=== PATIENT | female | born 1970 | race Caucasian/White ===

== ENCOUNTER 2016-09-29 18:28 | Emergency (ER) | payer MEDICAID ==
[~2016-09-29] VITALS: Ht 160 cm; Wt 92.8 kg
[~2016-09-29 18:28] MED LIST: ALBU1.25 NEB; ALBU8.5H3 PO; AMOX-291 PO; AZIT250T PO; CHLO1CAP PO; ESOM20CA PO; FOLI-17 PO; FURO-93 PO; HYDR-3240; HYDR10TA4 PO; LACT10SO28 PO; LACT10SO5 PO; LACT20SO2 PO; LORA-446 PO; LORA0.5T PO; MAGN400T26 PO; MULT-6 PO; MULT-750 PO; ONDA4TAB10 PO; ONDA4TAB7 PO; OXYC5TAB3 PO; PANT20TA2 PO; PANT40TA3 PO; POTA10TA5 PO; PRED10TA PO; RIFA550T PO; SERT25TA PO; SPIR50TA PO; THIA100T10 PO; THIA100T6 PO; TRAM-28 PO
[2016-09-29] MEDS ORDERED: ONDA4TAB10 PO (18:49)
[2016-09-29 19:44] LABS: BLOOD UREA NITROGEN 11 mg/dL (7-18)
[2016-09-29 19:45] LABS: ASPARTATE AMINO TRANSFERASE 52 U/L (15-37)
[2016-09-29 20:28] LABS: HEMOGLOBIN 13.8 g/dL (11.7-16.4)
[2016-09-29 21:49] VITALS: BP 109/69
== END 2016-09-29 21:51 | disposition home or self-care (01) ==
LOC: ED 21:15
DX: R10.11 Right upper quadrant pain (principal); G89.29 Other chronic pain; K70.30 Alcoholic cirrhosis of liver without ascites; F10.220 Alcohol dependence with intoxication, uncomplicated; J44.9 Chronic obstructive pulmonary disease, unspecified; I10 Essential (primary) hypertension
CPT/HCPCS: 36415; 80053; 80307; 83690; 85025; 85610; 85730; 99284

== ENCOUNTER 2016-10-06 18:04 | Emergency (ER) | payer MEDICAID ==
[2016-10-06] MEDS ORDERED: SODIUM CHLORIDE 0.9% 1,000 ML IV ONE (18:12)
[2016-10-06] MEDS ORDERED: SODIUM CHLORIDE 0.9% 1,000ML IVBOLUS ONE (18:30)
[2016-10-06] MEDS ORDERED: FAMOTIDINE 20 MG/2 ML IVP ONE (18:30)
[2016-10-06] MEDS ORDERED: PLEASE ENTER HEIGHT AND WEIGHT MC SCH (18:30)
[2016-10-06] MEDS ORDERED: SODIUM CHLORIDE FLUSH 10ML SYR IVF ONE (18:30)
[2016-10-06] MEDS ORDERED: ONDANSETRON 2MG/ML, 2ML IVPush ONE (18:30)
[2016-10-06 18:35] LABS: HEMOGLOBIN 12.1 g/dL (11.7-16.4)
[2016-10-06 18:39] LABS: ASPARTATE AMINO TRANSFERASE 52 U/L (15-37); BLOOD UREA NITROGEN 10 mg/dL (7-18)
[2016-10-06 19:16] LABS: DIFF TOTAL CELLS COUNTED 100 CELL DIFF
[2016-10-06 19:20] LABS: ANISOCYTOSIS 1+; VERIFY COUNTS? YES
[2016-10-06] MEDS ORDERED: ONDANSETRON 2MG/ML, 2ML ONE (19:21)
[2016-10-06] MEDS ORDERED: FAMOTIDINE 20 MG/2 ML ONE (19:21)
[2016-10-06] MEDS ORDERED: ONDANSETRON ODT 4 MG ONE (19:55)
[2016-10-06] MEDS ORDERED: FAMOTIDINE 20 MG TABLET ONE (19:55)
[2016-10-06] MEDS ORDERED: FAMOTIDINE 20 MG TABLET PO ONE (20:00)
[2016-10-06] MEDS ORDERED: ONDANSETRON ODT 4 MG PO ONE (20:00)
[2016-10-06 21:34] VITALS: BP 101/67
== END 2016-10-06 21:35 | disposition home or self-care (01) ==
LOC: ED 21:31
DX: K70.10 Alcoholic hepatitis without ascites (principal); F10.20 Alcohol dependence, uncomplicated; R74.9 Abnormal serum enzyme level, unspecified; R10.13 Epigastric pain; I10 Essential (primary) hypertension; J44.9 Chronic obstructive pulmonary disease, unspecified; Z90.49 Acquired absence of other specified parts of digestive tract
CPT/HCPCS: 36415; 80053; 81003; 83690; 85025; 99284; Q0162

== ENCOUNTER 2016-12-15 16:11 | Emergency (ER) | payer MEDICAID ==
[~2016-12-15] VITALS: Ht 157.5 cm; Wt 86.4 kg
[~2016-12-15 16:11] MED LIST changes: +LACT20SO13 PO; -LACT20SO2 PO
[2016-12-15] MEDS ORDERED: SODIUM CHLORIDE FLUSH 10ML SYR IVF ONE (16:30)
[2016-12-15] MEDS ORDERED: SODIUM CHLORIDE 0.9% 1,000ML IVBOLUS ONE (16:30)
[2016-12-15] MEDS ORDERED: FAMOTIDINE 20 MG/2 ML IVP ONE (16:30)
[2016-12-15] MEDS ORDERED: ONDANSETRON 2MG/ML, 2ML IVPush ONE (16:30)
[2016-12-15] MEDS ORDERED: MAALOX/HYOSCYAMINE/LIDOCAINE 45 ML BOTTLE PO ONE (16:30)
[2016-12-15] MEDS ORDERED: MORPHINE SULFATE 4 MG/ML, 1ML ONE ×2 (17:07→19:18)
[2016-12-15] MEDS ORDERED: FAMOTIDINE 20 MG/2 ML ONE (17:07)
[2016-12-15] MEDS ORDERED: MAALOX/HYOSCYAMINE/LIDOCAINE 45 ML BOTTLE ONE (17:07)
[2016-12-15] MEDS ORDERED: ONDANSETRON 2MG/ML, 2ML ONE (17:07)
[2016-12-15] MEDS: MORPHINE SULFATE 4 MG/ML, 1ML IVPush PRN ×2 (17:11→19:22)
[2016-12-15 17:16] LABS: ASPARTATE AMINO TRANSFERASE 55 U/L (15-37); BLOOD UREA NITROGEN 7 mg/dL (7-18)
[2016-12-15 17:28] LABS: DIFF TOTAL CELLS COUNTED 100 CELL DIFF
[2016-12-15 17:31] LABS: LARGE PLATELETS 1+; VERIFY COUNTS? YES
[2016-12-15 19:55] VITALS: BP 124/80
== END 2016-12-15 19:59 | disposition home or self-care (01) ==
LOC: ED 18:24
DX: K29.20 Alcoholic gastritis without bleeding (principal); F10.10 Alcohol abuse, uncomplicated; I10 Essential (primary) hypertension; J44.9 Chronic obstructive pulmonary disease, unspecified
CPT/HCPCS: 36415; 71010; 80053; 80307; 81003; 83690; 84703; 85025; 96361; 96374; 96375; 96376; 99285; J2405; J7030; S0028

== ENCOUNTER 2016-12-20 03:38 | Emergency (ER) | payer MEDICAID ==
[~2016-12-20] VITALS: Ht 157.5 cm; Wt 90.0 kg
[2016-12-20] MEDS ORDERED: methylPREDNISolone SOD SUCC 125 MG/2 ML IVP ONE (04:00)
[2016-12-20] MEDS ORDERED: ALBUTEROL SULFATE 2.5 MG/3 ML NPPB ONE (04:00)
[2016-12-20] MEDS ORDERED: SODIUM CHLORIDE 0.9% 1,000ML IVBOLUS ONE (04:00)
[2016-12-20 04:46] LABS: ASPARTATE AMINO TRANSFERASE 55 U/L (15-37); BLOOD UREA NITROGEN 8 mg/dL (7-18)
[2016-12-20 04:51] LABS: IS PT STATUS REG ER OR PRE ER? YES
[2016-12-20] MEDS ORDERED: methylPREDNISolone SOD SUCC 125 MG/2 ML ONE (04:54)
[2016-12-20 05:08] LABS: DIFF TOTAL CELLS COUNTED 100 CELL DIFF
[2016-12-20 05:16] LABS: ANISOCYTOSIS 1+
[2016-12-20 05:17] LABS: LARGE PLATELETS 1+; VERIFY COUNTS? YES
[2016-12-20 05:29] VITALS: BP 124/82
== END 2016-12-20 06:09 | disposition home or self-care (01) ==
LOC: ED 06:01
DX: J44.1 Chronic obstructive pulmonary disease with (acute) exacerbation (principal); F10.120 Alcohol abuse with intoxication, uncomplicated; I10 Essential (primary) hypertension
CPT/HCPCS: 36415; 71010; 80053; 80307; 84484; 85025; 93005; 94640; 96361; 96374; 99285; J2930; J7030; J7613

== ENCOUNTER 2017-01-06 17:17 | Emergency (ER) | payer MEDICAID ==
[~2017-01-06] VITALS: Ht 160 cm; Wt 84.1 kg
[2017-01-06] MEDS ORDERED: SODIUM CHLORIDE 0.9% 1,000ML IVBOLUS ONE (18:30)
[2017-01-06] MEDS ORDERED: ONDANSETRON 2MG/ML, 2ML IVPush ONE (18:30)
[2017-01-06] MEDS ORDERED: SODIUM CHLORIDE FLUSH 10ML SYR IVF ONE (18:30)
[2017-01-06] MEDS ORDERED: FAMOTIDINE 20 MG/2 ML IVPush ONE (18:30)
[2017-01-06] MEDS ORDERED: FAMOTIDINE 20 MG/2 ML ONE (18:46)
[2017-01-06] MEDS ORDERED: ONDANSETRON 2MG/ML, 2ML ONE (18:46)
[2017-01-06] MEDS ORDERED: MORPHINE SULFATE 4 MG/ML, 1ML ONE ×2 (18:46→19:22)
[2017-01-06] MEDS: MORPHINE SULFATE 4 MG/ML, 1ML IVPush PRN ×2 (18:57→19:31)
[2017-01-06 19:05] LABS: BLOOD UREA NITROGEN 6 mg/dL (7-18)
[2017-01-06 19:08] LABS: ASPARTATE AMINO TRANSFERASE 38 U/L (15-37)
[2017-01-06 20:16] VITALS: BP 104/63
== END 2017-01-06 20:48 | disposition home or self-care (01) ==
LOC: ED 20:27
DX: G89.29 Other chronic pain (principal); R10.13 Epigastric pain; G43.909 Migraine, unspecified, not intractable, without status migrainosus; I10 Essential (primary) hypertension; J44.9 Chronic obstructive pulmonary disease, unspecified; E11.9 Type 2 diabetes mellitus without complications; I85.00 Esophageal varices without bleeding; K92.0 Hematemesis
CPT/HCPCS: 36415; 80053; 83690; 85025; 85610; 85730; 86850; 86900; 96361; 96374; 96375; 96376; 99285; J2405; J7030; S0028

== ENCOUNTER 2017-01-14 14:23 | Emergency (ER) | payer MEDICAID ==
[~2017-01-14] VITALS: Ht 160 cm; Wt 86.1 kg
[2017-01-14 14:56] LABS: ASPARTATE AMINO TRANSFERASE 40 U/L (15-37); BLOOD UREA NITROGEN 6 mg/dL (7-18)
[2017-01-14 15:43] VITALS: BP 113/57
== END 2017-01-14 15:44 | disposition home or self-care (01) ==
LOC: ED 14:33
DX: G89.29 Other chronic pain (principal); R10.84 Generalized abdominal pain; R10.30 Lower abdominal pain, unspecified; E11.9 Type 2 diabetes mellitus without complications; I10 Essential (primary) hypertension; J44.9 Chronic obstructive pulmonary disease, unspecified; Z88.6 Allergy status to analgesic agent; Z90.49 Acquired absence of other specified parts of digestive tract
CPT/HCPCS: 36415; 80053; 81001; 85025; 85610; 85730; 99284

== ENCOUNTER 2017-02-11 13:26 | Emergency (ER) | payer MEDICAID ==
[~2017-02-11] VITALS: Ht 170.2 cm; Wt 85.8 kg
[~2017-02-11 13:26] MED LIST changes: +ALBU8.5H3 INH; +DISU250T2 PO; +MULT1TAB60 PO
[2017-02-11] MEDS ORDERED: ONDANSETRON 2MG/ML, 2ML IVPush ONE (13:30)
[2017-02-11] MEDS ORDERED: SODIUM CHLORIDE 0.9% 1,000ML IV ONE (13:30)
[2017-02-11] MEDS ORDERED: SODIUM CHLORIDE FLUSH 10ML SYR IVF ONE (13:30)
[2017-02-11] MEDS ORDERED: ONDANSETRON 2MG/ML, 2ML ONE (13:53)
[2017-02-11] MEDS ORDERED: MORPHINE SULFATE 4 MG/ML, 1ML ONE ×2 (13:53→16:16)
[2017-02-11] MEDS: MORPHINE SULFATE 4 MG/ML, 1ML IVPush PRN ×2 (13:58→16:19)
[2017-02-11] MEDS ORDERED: PLEASE ENTER HEIGHT AND WEIGHT MC SCH (14:00)
[2017-02-11] MEDS ORDERED: home oxygen (14:08)
[2017-02-11 14:14] LABS: BLOOD UREA NITROGEN 8 mg/dL (7-18)
[2017-02-11 14:28] LABS: HEMATOCRIT 41.8 % (34.6-47.8); HEMOGLOBIN 13.9 g/dL (11.7-16.4); WHITE BLOOD COUNT 4.1 x10^3/uL (3.4-10)
[2017-02-11 17:38] VITALS: BP 120/70
== END 2017-02-11 17:41 | disposition home or self-care (01) ==
LOC: ED 17:25
DX: G89.11 Acute pain due to trauma (principal); R10.9 Unspecified abdominal pain; E11.9 Type 2 diabetes mellitus without complications; J44.9 Chronic obstructive pulmonary disease, unspecified; F32.9 Major depressive disorder, single episode, unspecified; Z90.49 Acquired absence of other specified parts of digestive tract
CPT/HCPCS: 36415; 74176; 80048; 81001; 82040; 83605; 85025; 87040; 87086; 96361; 96374; 96375; 96376; 99285; J2405; J7030

== ENCOUNTER 2017-03-08 17:00 | Emergency (ER) | payer MEDICAID ==
[~2017-03-08] VITALS: Ht 160 cm; Wt 78.0 kg
[~2017-03-08 17:00] MED LIST changes: -ALBU8.5H3 INH; -ALBU8.5H3 PO; +ALBU8.5H8 INH; +ALBU8.5H8 PO; -RIFA550T PO; +RIFA550T4 PO; -TRAM-28 PO; +TRAM-47 PO; +home oxygen
[2017-03-08 17:27] LABS: HEMATOCRIT 38.5 % (34.6-47.8); HEMOGLOBIN 12.9 g/dL (11.7-16.4); WHITE BLOOD COUNT 2.9 x10^3/uL (3.4-10)
[2017-03-08] MEDS ORDERED: FAMOTIDINE 20 MG/2 ML IVP ONE (17:30)
[2017-03-08] MEDS ORDERED: ONDANSETRON 2MG/ML, 2ML IVPush ONE (17:30)
[2017-03-08] MEDS ORDERED: SODIUM CHLORIDE FLUSH 10ML SYR IVF ONE (17:30)
[2017-03-08] MEDS ORDERED: SODIUM CHLORIDE 0.9% 1,000ML IVBOLUS ONE (17:30)
[2017-03-08] MEDS ORDERED: HYDROmorphone 1 MG/ML, 1ML IVPush ONE (17:30)
[2017-03-08 17:38] LABS: ASPARTATE AMINO TRANSFERASE 40 U/L (15-37); BLOOD UREA NITROGEN 9 mg/dL (7-18)
[2017-03-08] MEDS ORDERED: HYDROmorphone 1 MG/ML, 1ML ONE (17:44)
[2017-03-08] MEDS ORDERED: ONDANSETRON 2MG/ML, 2ML ONE (17:44)
[2017-03-08] MEDS ORDERED: FAMOTIDINE 20 MG/2 ML ONE (17:44)
[2017-03-08] MEDS ORDERED: ONDA4TAB10 PO (18:57)
[2017-03-08 20:12] VITALS: BP 111/63
== END 2017-03-08 20:15 | disposition home or self-care (01) ==
LOC: ED 17:23
DX: R10.84 Generalized abdominal pain (principal); K02.9 Dental caries, unspecified
CPT/HCPCS: 36415; 80053; 81003; 83690; 85025; 96361; 96374; 96375; 99284; J1170; J2405; J7030; S0028

== ENCOUNTER 2017-03-19 09:53 | Emergency (ER) | payer MEDICAID ==
[~2017-03-19] VITALS: Ht 160 cm; Wt 78.5 kg
[2017-03-19] MEDS ORDERED: FAMOTIDINE 20 MG TABLET ONE (10:06)
[2017-03-19] MEDS ORDERED: FAMOTIDINE 20 MG TABLET PO ONE (10:30)
[2017-03-19] MEDS ORDERED: ALBUTEROL/IPRATROPIUM 2.5MG/0.5MG, 3 ML NPPB ONE (10:30)
[2017-03-19 10:40] LABS: BLOOD UREA NITROGEN 9 mg/dL (7-18)
[2017-03-19 10:51] LABS: HEMATOCRIT 38.8 % (34.6-47.8); HEMOGLOBIN 13.2 g/dL (11.7-16.4); WHITE BLOOD COUNT 2.2 x10^3/uL (3.4-10)
[2017-03-19] MEDS ORDERED: ALBUTEROL/IPRATROPIUM 2.5MG/0.5MG, 3 ML ONE (11:12)
[2017-03-19 11:47] VITALS: BP 97/64
== END 2017-03-19 11:49 | disposition home or self-care (01) ==
LOC: ED 09:57
DX: J44.1 Chronic obstructive pulmonary disease with (acute) exacerbation (principal); I10 Essential (primary) hypertension; E11.9 Type 2 diabetes mellitus without complications; F32.9 Major depressive disorder, single episode, unspecified; F41.9 Anxiety disorder, unspecified; F17.200 Nicotine dependence, unspecified, uncomplicated; Z90.49 Acquired absence of other specified parts of digestive tract; Z88.6 Allergy status to analgesic agent; Z88.8 Allergy status to other drugs, medicaments and biological substances
CPT/HCPCS: 36415; 71010; 80048; 82040; 85025; 93005; 94640; J7620

== ENCOUNTER 2017-03-29 07:32 | Emergency (ER) | payer MEDICAID ==
[~2017-03-29] VITALS: Ht 160 cm; Wt 80.0 kg
[2017-03-29] MEDS ORDERED: ALBUTEROL/IPRATROPIUM 2.5MG/0.5MG, 3 ML ONE (07:58)
[2017-03-29] MEDS ORDERED: SODIUM CHLORIDE FLUSH 10ML SYR IVF ONE (08:00)
[2017-03-29] MEDS ORDERED: ALBUTEROL/IPRATROPIUM 2.5MG/0.5MG, 3 ML NPPB SCH (08:00)
[2017-03-29 08:16] LABS: BLOOD UREA NITROGEN 11 mg/dL (7-18)
[2017-03-29 08:21] LABS: ASPARTATE AMINO TRANSFERASE 46 U/L (15-37)
[2017-03-29 10:09] VITALS: BP 114/66
== END 2017-03-29 10:19 | disposition home or self-care (01) ==
LOC: ED 08:01
DX: J44.1 Chronic obstructive pulmonary disease with (acute) exacerbation (principal); J20.8 Acute bronchitis due to other specified organisms; E11.9 Type 2 diabetes mellitus without complications; I10 Essential (primary) hypertension; G43.909 Migraine, unspecified, not intractable, without status migrainosus; Z90.49 Acquired absence of other specified parts of digestive tract
CPT/HCPCS: 36415; 71010; 80053; 83880; 85025; 93005; 94640; 99285; J7512; J7620

== ENCOUNTER 2017-04-17 19:33 | Emergency (ER) | payer MEDICAID ==
[~2017-04-17] VITALS: Ht 160 cm; Wt 82.0 kg
[2017-04-17] MEDS ORDERED: SODIUM CHLORIDE 0.9% 1,000ML IVBOLUS ONE (20:00)
[2017-04-17] MEDS ORDERED: ONDANSETRON 2MG/ML, 2ML IVPush ONE (20:00)
[2017-04-17] MEDS ORDERED: MORPHINE SULFATE 4 MG/ML, 1ML IVPush PRN (20:00)
[2017-04-17 20:25] LABS: ASPARTATE AMINO TRANSFERASE 52 U/L (15-37); BLOOD UREA NITROGEN 8 mg/dL (7-18)
[2017-04-17 20:49] LABS: HEMATOCRIT 38.8 % (34.6-47.8); WHITE BLOOD COUNT 3.4 x10^3/uL (3.4-10)
[2017-04-17] MEDS ORDERED: ONDANSETRON 2MG/ML, 2ML ONE (20:52)
[2017-04-17] MEDS ORDERED: MORPHINE SULFATE 4 MG/ML, 1ML ONE (20:52)
[2017-04-17 21:08] LABS: DAU SCREEN DISCLAIMER
[2017-04-17 21:26] LABS: DIFF TOTAL CELLS COUNTED 100 CELL DIFF
[2017-04-17 21:40] LABS: VERIFY COUNTS? YES
[2017-04-17 22:05] VITALS: BP 122/66
== END 2017-04-17 22:49 | disposition home or self-care (01) ==
LOC: ED 21:03
DX: K29.20 Alcoholic gastritis without bleeding (principal); F10.229 Alcohol dependence with intoxication, unspecified; E11.9 Type 2 diabetes mellitus without complications; I10 Essential (primary) hypertension; J44.9 Chronic obstructive pulmonary disease, unspecified; Z90.49 Acquired absence of other specified parts of digestive tract
CPT/HCPCS: 36415; 80053; 80307; 81003; 83690; 85025; 96361; 96374; 96375; 99285; J2405; J7030; G0479

== ENCOUNTER 2017-04-25 10:11 | Emergency (ER) | payer MEDICAID ==
[~2017-04-25] VITALS: Ht 160 cm; Wt 87.0 kg
[2017-04-25 10:21] VITALS: BP 136/92
[2017-04-25] MEDS ORDERED: BUPIVACAINE/PF 0.5% ONE (10:23)
[2017-04-25] MEDS ORDERED: LIDOCAINE 1%-EPI 1:100K, 20ML INFIL ONE (10:30)
[2017-04-25] MEDS ORDERED: LIDOCAINE 1%, 20ML ONE (10:30)
[2017-04-25] MEDS ORDERED: LIDOCAINE/PF 1%-EPI 1:200K, 30 ML INFIL ONE (11:00)
== END 2017-04-25 11:07 | disposition home or self-care (01) ==
LOC: ED 10:32
DX: K04.7 Periapical abscess without sinus (principal); J44.9 Chronic obstructive pulmonary disease, unspecified; I10 Essential (primary) hypertension; E11.9 Type 2 diabetes mellitus without complications
CPT/HCPCS: 64400; 99284

== ENCOUNTER 2017-06-18 09:32 | Emergency (ER) | payer MEDICAID ==
[~2017-06-18] VITALS: Ht 160 cm; Wt 80.9 kg
[2017-06-18] MEDS ORDERED: PANTOPRAZOLE 40 MG IV IVPush ONE (12:00)
[2017-06-18] MEDS ORDERED: ONDANSETRON 2MG/ML, 2ML IVPush ONE (12:00)
[2017-06-18] MEDS ORDERED: PANTOPRAZOLE 40 MG IV ONE (12:00)
[2017-06-18] MEDS ORDERED: ONDANSETRON 2MG/ML, 2ML ONE (12:00)
[2017-06-18 12:16] LABS: HEMATOCRIT 41.9 % (34.6-47.8); HEMOGLOBIN 14.2 g/dL (11.7-16.4); WHITE BLOOD COUNT 3.8 x10^3/uL (3.4-10)
[2017-06-18 13:08] LABS: ASPARTATE AMINO TRANSFERASE 67 U/L (15-37); BLOOD UREA NITROGEN 17 mg/dL (7-18)
[2017-06-18] MEDS ORDERED: hydrALAzine 20 MG/ML, 1ML IV ONE (13:30)
[2017-06-18] MEDS ORDERED: MORPHINE SULFATE 4 MG/ML, 1ML IVPush ONE ×2 (13:30→15:30)
[2017-06-18] MEDS ORDERED: MORPHINE SULFATE 4 MG/ML, 1ML ONE ×2 (13:52→15:37)
[2017-06-18] MEDS ORDERED: hydrALAzine 20 MG/ML, 1ML ONE (13:52)
[2017-06-18] MEDS ORDERED: LIDOCAINE 1%, 20ML ONE (13:55)
[2017-06-18 15:40] VITALS: BP 121/52
== END 2017-06-18 15:58 | disposition home or self-care (01) ==
LOC: ED 12:15
DX: K29.20 Alcoholic gastritis without bleeding (principal); G89.29 Other chronic pain; D69.59 Other secondary thrombocytopenia
CPT/HCPCS: 36415; 49083; 74176; 80053; 83690; 85025; 85610; 85730; 96374; 96375; 96376; 99285; C9113; J0360; J2405; J3490

== ENCOUNTER 2017-06-28 16:37 | Emergency (ER) | payer MEDICAID ==
[~2017-06-28] VITALS: Ht 160 cm; Wt 81.0 kg
[2017-06-28] MEDS ORDERED: CYCLOBENZAPRINE 10 MG TABLET PO ONE (17:00)
[2017-06-28] MEDS ORDERED: ACETAMINOPHEN 500 MG TABLET PO ONE (17:00)
[2017-06-28] MEDS ORDERED: CYCLOBENZAPRINE 10 MG TABLET ONE (17:28)
[2017-06-28] MEDS ORDERED: ACETAMINOPHEN 500 MG TABLET ONE (17:28)
[2017-06-28 20:42] VITALS: BP 132/99
== END 2017-06-28 20:45 | disposition home or self-care (01) ==
LOC: ED 20:30
DX: M54.5 Low back pain (principal); M54.6 Pain in thoracic spine; E11.9 Type 2 diabetes mellitus without complications; I10 Essential (primary) hypertension; J44.9 Chronic obstructive pulmonary disease, unspecified; I25.2 Old myocardial infarction; I85.00 Esophageal varices without bleeding
CPT/HCPCS: 71020; 81001; 87086; 93005; 99285

== ENCOUNTER 2017-10-21 10:04 | Emergency (ER) | payer MEDICAID ==
[~2017-10-21] VITALS: Ht 160 cm; Wt 88.2 kg
[~2017-10-21 10:04] MED LIST changes: +ALBU0.63 NEB
[2017-10-21] MEDS ORDERED: METOCLOPRAMIDE 5 MG/ML, 2ML ONE (10:58)
[2017-10-21] MEDS ORDERED: FAMOTIDINE 20 MG/2 ML ONE (10:58)
[2017-10-21] MEDS ORDERED: HYDROmorphone 2 MG/ML, 1ML ONE (10:58)
[2017-10-21] MEDS ORDERED: DIPHENHYDRAMINE 50 MG/ML, 1ML ONE (10:58)
[2017-10-21] MEDS ORDERED: METOCLOPRAMIDE 5 MG/ML, 2ML IVPush ONE (11:00)
[2017-10-21] MEDS ORDERED: SODIUM CHLORIDE FLUSH 10ML SYR IVF ONE (11:00)
[2017-10-21] MEDS ORDERED: HYDROmorphone 1 MG/ML, 1ML IVPush ONE (11:00)
[2017-10-21] MEDS ORDERED: SODIUM CHLORIDE 0.9% 1,000ML IVBOLUS ONE (11:00)
[2017-10-21] MEDS ORDERED: DIPHENHYDRAMINE 50 MG/ML, 1ML IVPush ONE (11:00)
[2017-10-21] MEDS ORDERED: FAMOTIDINE 20 MG/2 ML IVP ONE (11:00)
[2017-10-21 11:12] LABS: MICROSCOPIC INDICATED
[2017-10-21 11:14] LABS: ALANINE AMINOTRANSFERASE 28 U/L (12-78); ANION GAP 7 mmol/L (5-15); CALCIUM 8.3 mg/dL (8.5-10.1); CHLORIDE 109 mmol/L (98-107); CREATININE 0.61 mg/dL (0.55-1.02)
[2017-10-21 11:16] LABS: ALKALINE PHOSPHATASE 159 U/L (45-117); BILIRUBIN,TOTAL 1.9 mg/dL (0.2-1.0)
[2017-10-21 11:21] LABS: MEAN CORPUSCULAR HEMOGLOBIN 32.5 pg (27.0-34.8); MEAN CORPUSCULAR HGB CONC 33.9 g/dL (32.4-35.8); MEAN CORPUSCULAR VOLUME 95.7 fL (80-100); MEAN PLATELET VOLUME 9.2 fL (7.4-10.4); PLATELET COUNT 78 x10^3/uL (130-400); RED BLOOD COUNT 4.23 x10^6/uL (3.82-5.3); RED CELL DISTRIBUTION WIDTH 16.1 % (9.6-15.2)
[2017-10-21 11:23] LABS: CULTURE INDICATED? YES
[2017-10-21 11:25] LABS: MD YES
[2017-10-21 11:28] LABS: BASOS#(MANUAL) 0.02 x10^3/uL (0-0.1); BASOS% (MANUAL) 1 % (0-1); EOS#(MANUAL) 0.04 x10^3/uL (0.0-0.4); EOS% (MANUAL) 2 % (1-7); MONOS#(MANUAL) 0.17 x10^3/uL (0.3-2.7); MONOS% (MANUAL) 9 % (2-9)
[2017-10-21 11:29] LABS: ANISOCYTOSIS 1+; LYMPH#(MANUAL) 0.61 x10^3/uL (1-3.4); LYMPHS% (MANUAL) 32 % (22-44); SEG#(MANUAL) 1.06 x10^3/uL (1.8-6.8); SEGS% (MANUAL) 56 % (42-75)
[2017-10-21 11:30] LABS: <PLATELET ESTIMATE> DECREASED; <PLT MORPHOLOGY> NORMAL PLT MORPH
[2017-10-21] MEDS ORDERED: KETOROLAC 30 MG/1 ML ONE (13:42)
[2017-10-21 13:56] VITALS: BP 125/71
[2017-10-21] MEDS ORDERED: KETOROLAC 30 MG/1 ML IVPush ONE (14:00)
== END 2017-10-21 13:59 | disposition home or self-care (01) ==
LOC: ED 12:24
DX: R10.84 Generalized abdominal pain (principal); G89.29 Other chronic pain; I10 Essential (primary) hypertension; E11.9 Type 2 diabetes mellitus without complications; I25.2 Old myocardial infarction; J44.9 Chronic obstructive pulmonary disease, unspecified; G43.909 Migraine, unspecified, not intractable, without status migrainosus; E87.0 Hyperosmolality and hypernatremia; Z90.49 Acquired absence of other specified parts of digestive tract
CPT/HCPCS: 36415; 80053; 81001; 83690; 85025; 87086; 96361; 96374; 96375; 99284; J1170; J1200; J1885; J2765; J7030; S0028

== ENCOUNTER 2017-11-05 16:15 | Emergency (ER) | payer MEDICAID ==
[~2017-11-05] VITALS: Ht 160 cm; Wt 78.0 kg
[2017-11-05 16:16] VITALS: BP 124/78
[2017-11-05] MEDS ORDERED: LACT10SO28 PO (16:32)
[2017-11-05] MEDS ORDERED: PANT20TA2 PO (16:35)
[2017-11-05] MEDS ORDERED: ALBU2.5V11 NEB (16:35)
[2017-11-05] MEDS ORDERED: ONDA4TAB13 SL (16:35)
[2017-11-05] MEDS ORDERED: FAMOTIDINE 20 MG/2 ML ONE (16:59)
[2017-11-05] MEDS ORDERED: SODIUM CHLORIDE FLUSH 10ML SYR IVF ONE (17:00)
[2017-11-05] MEDS ORDERED: FAMOTIDINE 20 MG/2 ML IVP ONE (17:00)
[2017-11-05 17:20] LABS: INTERNATIONAL NORMALIZED RATIO 1.1 (0.93-1.1); PROTHROMBIN TIME 11.4 Seconds (9.6-11.5)
[2017-11-05 17:24] LABS: ALANINE AMINOTRANSFERASE 39 U/L (12-78); ALBUMIN 2.9 g/dL (3.4-5.0); ANION GAP 9 mmol/L (5-15); CHLORIDE 112 mmol/L (98-107); CREATININE 0.61 mg/dL (0.55-1.02)
[2017-11-05 17:26] LABS: ALKALINE PHOSPHATASE 169 U/L (45-117); BILIRUBIN,TOTAL 1.3 mg/dL (0.2-1.0); TOTAL PROTEIN 6.9 g/dL (6.4-8.2)
[2017-11-05 17:43] LABS: BASOPHILS # (AUTO) 0.01 x10^3/uL (0-0.1); BASOPHILS % (AUTO) 0 % (0-1); EOSINOPHILS # (AUTO) 0.14 x10^3/uL (0-0.4); EOSINOPHILS % (AUTO) 5 % (1-7); LYMPHOCYTES % (AUTO) 33 % (22-44); MD SCAN; MEAN CORPUSCULAR HEMOGLOBIN 32.9 pg (27.0-34.8); MEAN CORPUSCULAR HGB CONC 34.3 g/dL (32.4-35.8); MEAN CORPUSCULAR VOLUME 95.8 fL (80-100); MEAN PLATELET VOLUME 9.4 fL (7.4-10.4); MONOCYTES # (AUTO) 0.41 x10^3/uL (0.2-0.8); MONOCYTES % (AUTO) 14 % (2-9); NEUTROPHILS # (AUTO) 1.49 x10^3/uL (1.8-6.8); NEUTROPHILS % (AUTO) 49 % (42-75); PLATELET COUNT 82 x10^3/uL (130-400); RED BLOOD COUNT 4.26 x10^6/uL (3.82-5.3); RED CELL DISTRIBUTION WIDTH 15.5 % (9.6-15.2)
== END 2017-11-05 18:56 | disposition home or self-care (01) ==
LOC: EDBD 16:15 → MERGE 16:15 → ED 18:05
DX: G89.29 Other chronic pain (principal); R10.13 Epigastric pain; R10.11 Right upper quadrant pain; K70.9 Alcoholic liver disease, unspecified; F10.20 Alcohol dependence, uncomplicated; J44.9 Chronic obstructive pulmonary disease, unspecified; E11.9 Type 2 diabetes mellitus without complications; I10 Essential (primary) hypertension
CPT/HCPCS: 36415; 74022; 80053; 83690; 85025; 85610; 85730; 93005; 99285

== ENCOUNTER 2017-12-13 14:40 | Inpatient (IN) | payer MEDICAID ==
[~2017-12-13] VITALS: Ht 160 cm; Wt 85.4 kg
[~2017-12-13 14:40] MED LIST changes: +ALBU2.5V11 NEB; +ONDA4TAB13 SL
[2017-12-13] MEDS ORDERED: methylPREDNISolone SOD SUCC 125 MG/2 ML ONE (14:54)
[2017-12-13] MEDS ORDERED: methylPREDNISolone SOD SUCC 125 MG/2 ML IVP ONE (15:00)
[2017-12-13] MEDS ORDERED: SODIUM CHLORIDE FLUSH 10ML SYR IVF ONE (15:00)
[2017-12-13] MEDS: ALBUTEROL/IPRATROPIUM 2.5MG/0.5MG, 3 ML NPPB SCH ×3 (15:02→21:42)
[2017-12-13] MEDS ORDERED: ALBUTEROL/IPRATROPIUM 2.5MG/0.5MG, 3 ML ONE (15:02)
[2017-12-13 15:43] LABS: ALBUMIN 3.1 g/dL (3.4-5.0); ANION GAP 7 mmol/L (5-15); CALCIUM 9.1 mg/dL (8.5-10.1); CHLORIDE 109 mmol/L (98-107); CREATININE 0.57 mg/dL (0.55-1.02)
[2017-12-13 15:45] LABS: MEAN CORPUSCULAR HEMOGLOBIN 32.5 pg (27.0-34.8); MEAN CORPUSCULAR HGB CONC 34.1 g/dL (32.4-35.8); MEAN CORPUSCULAR VOLUME 95.2 fL (80-100); MEAN PLATELET VOLUME 9.2 fL (7.4-10.4); PLATELET COUNT 66 x10^3/uL (130-400); RED BLOOD COUNT 4.05 x10^6/uL (3.82-5.3); RED CELL DISTRIBUTION WIDTH 15.6 % (9.6-15.2)
[2017-12-13 15:47] LABS: TROPONIN I < 0.015 ng/mL (0.000-0.045)
[2017-12-13 16:07] LABS: BASOPHILS # (AUTO) 0.02 x10^3/uL (0-0.1); BASOPHILS % (AUTO) 1 % (0-1); EOSINOPHILS # (AUTO) 0.12 x10^3/uL (0-0.4); EOSINOPHILS % (AUTO) 4 % (1-7); LYMPHOCYTES # (AUTO) 1.22 x10^3/uL (1-3.4); LYMPHOCYTES % (AUTO) 38 % (22-44); MD SCAN; MONOCYTES # (AUTO) 0.48 x10^3/uL (0.2-0.8); MONOCYTES % (AUTO) 15 % (2-9); NEUTROPHILS # (AUTO) 1.35 x10^3/uL (1.8-6.8); NEUTROPHILS % (AUTO) 42 % (42-75)
[2017-12-13 16:11] LABS: INTERNATIONAL NORMALIZED RATIO 1.17 (0.93-1.1)
[2017-12-13] MEDS ORDERED: FAMO40TA61 PO (16:54)
[2017-12-13] MEDS ORDERED: FURO40TA6 PO (16:54)
[2017-12-13] MEDS: SODIUM CHLORIDE 0.9% 1,000 ML IV SCH (17:27)
[2017-12-13] MEDS ORDERED: ENOXAPARIN 40 MG/0.4 ML SQ SCH (17:30)
[2017-12-13] MEDS ORDERED: ONDANSETRON 2MG/ML, 2ML IVPush PRN (17:30)
[2017-12-13] MEDS: methylPREDNISolone SOD SUCC 125 MG/2 ML IVPush SCH (17:30)
[2017-12-13] MEDS ORDERED: ONDANSETRON ODT 4 MG PO PRN (17:30)
[2017-12-13] MEDS ORDERED: DIPHENHYDRAMINE 50 MG/ML, 1ML ONE (17:33)
[2017-12-13] MEDS ORDERED: METOCLOPRAMIDE 5 MG/ML, 2ML ONE (17:33)
[2017-12-13] MEDS: DIPHENHYDRAMINE 50 MG/ML, 1ML IVPush PRN ×2 (17:36→23:24)
[2017-12-13] MEDS: METOCLOPRAMIDE 5 MG/ML, 2ML IVPush PRN ×2 (17:36→23:24)
[2017-12-13] MEDS ORDERED: ENOXAPARIN 40 MG/0.4 ML ONE (17:48)
[2017-12-13] MEDS: DOXYCYCLINE 100 MG in DEXTROSE 5% 250 ML IV SCH (20:05)
[2017-12-13] MEDS: FAMOTIDINE 40 MG TABLET PO SCH (20:12)
[2017-12-13] MEDS: LACTULOSE 10 GM/15 ML UDC PO SCH (20:15)
[2017-12-13 20:28] VITALS: BP 140/86
[2017-12-14 01:46] VITALS: BP 133/73
[2017-12-14] MEDS: methylPREDNISolone SOD SUCC 125 MG/2 ML IVPush SCH ×2 (01:49→09:02)
[2017-12-14] MEDS: SODIUM CHLORIDE 0.9% 1,000 ML IV SCH (04:58)
[2017-12-14 05:00] LABS: ALBUMIN 2.9 g/dL (3.4-5.0); ANION GAP 9 mmol/L (5-15); CALCIUM 8.4 mg/dL (8.5-10.1); CHLORIDE 111 mmol/L (98-107)
[2017-12-14 05:04] LABS: ALANINE AMINOTRANSFERASE 35 U/L (12-78); ALKALINE PHOSPHATASE 150 U/L (45-117); BILIRUBIN,TOTAL 1.4 mg/dL (0.2-1.0); CREATININE 0.63 mg/dL (0.55-1.02); TOTAL PROTEIN 6.6 g/dL (6.4-8.2)
[2017-12-14 05:10] LABS: MEAN CORPUSCULAR HEMOGLOBIN 32.2 pg (27.0-34.8); MEAN CORPUSCULAR HGB CONC 33.5 g/dL (32.4-35.8); MEAN CORPUSCULAR VOLUME 96.3 fL (80-100); MEAN PLATELET VOLUME 9.6 fL (7.4-10.4); PLATELET COUNT 60 x10^3/uL (130-400); RED BLOOD COUNT 3.82 x10^6/uL (3.82-5.3); RED CELL DISTRIBUTION WIDTH 15.6 % (9.6-15.2)
[2017-12-14 06:01] LABS: BASOPHILS # (AUTO) 0.01 x10^3/uL (0-0.1); BASOPHILS % (AUTO) 1 % (0-1); EOSINOPHILS % (AUTO) 0 % (1-7); LYMPHOCYTES # (AUTO) 0.36 x10^3/uL (1-3.4); LYMPHOCYTES % (AUTO) 21 % (22-44); MD SCAN; MONOCYTES # (AUTO) 0.04 x10^3/uL (0.2-0.8); MONOCYTES % (AUTO) 3 % (2-9); NEUTROPHILS # (AUTO) 1.29 x10^3/uL (1.8-6.8); NEUTROPHILS % (AUTO) 75 % (42-75)
[2017-12-14 07:15] VITALS: BP 130/79
[2017-12-14] MEDS: ALBUTEROL SULFATE 2.5 MG/3 ML NPPB SCH ×2 (07:51→11:14)
[2017-12-14] MEDS: LACTULOSE 10 GM/15 ML UDC PO SCH (09:02)
[2017-12-14] MEDS: METOCLOPRAMIDE 5 MG/ML, 2ML IVPush PRN (09:02)
[2017-12-14] MEDS: FAMOTIDINE 40 MG TABLET PO SCH (09:02)
[2017-12-14] MEDS: DIPHENHYDRAMINE 50 MG/ML, 1ML IVPush PRN (09:03)
[2017-12-14] MEDS: DOXYCYCLINE 100 MG in DEXTROSE 5% 250 ML IV SCH (09:03)
[2017-12-14] MEDS ORDERED: ALBU8.5H8 INH (09:41)
[2017-12-14] MEDS ORDERED: DOXY100T PO (09:41)
[2017-12-14] MEDS ORDERED: ALBU0.63 NEB (09:41)
[2017-12-14] MEDS ORDERED: PRED20TA PO (09:41)
== END 2017-12-14 12:00 | disposition home or self-care (01) | DRG 189 ==
LOC: ED 16:47 → EDIP 17:27 → 3NW 18:08
PROVIDERS: ADMIT Hospitalist; ATTEND Hospitalist
DX: J96.21 Acute and chronic respiratory failure with hypoxia (principal); J44.1 Chronic obstructive pulmonary disease with (acute) exacerbation; I85.00 Esophageal varices without bleeding; J98.11 Atelectasis; E44.0 Moderate protein-calorie malnutrition; K70.9 Alcoholic liver disease, unspecified; I10 Essential (primary) hypertension; K27.9 Peptic ulcer, site unspecified, unspecified as acute or chronic, without hemorrhage or perforation; E11.9 Type 2 diabetes mellitus without complications; D70.9 Neutropenia, unspecified; G43.909 Migraine, unspecified, not intractable, without status migrainosus; D69.6 Thrombocytopenia, unspecified; D63.8 Anemia in other chronic diseases classified elsewhere; F32.9 Major depressive disorder, single episode, unspecified; F41.9 Anxiety disorder, unspecified; Z82.49 Family history of ischemic heart disease and other diseases of the circulatory system; Z82.5 Family history of asthma and other chronic lower respiratory diseases; Z83.3 Family history of diabetes mellitus; Z86.718 Personal history of other venous thrombosis and embolism; Z87.11 Personal history of peptic ulcer disease; Z91.19 Patient's noncompliance with other medical treatment and regimen; Z99.81 Dependence on supplemental oxygen; Z68.33 Body mass index [BMI] 33.0-33.9, adult
CPT/HCPCS: 36415; 71046; 80048; 80053; 82040; 83605; 83880; 84484; 85025; 85610; 85730; 87040; 93005; 94640; 96374; J1650; J7060; J7613; J7620; J1200; J2765; J2930; J7030

== ENCOUNTER 2018-04-16 10:51 | Inpatient (IN) | payer MEDICAID ==
[~2018-04-16] VITALS: Ht 165.1 cm; Wt 90.0 kg
[~2018-04-16 10:51] MED LIST changes: +DOXY100T PO; +FAMO40TA61 PO; +FURO40TA6 PO; +PRED20TA PO; -THIA100T6 PO; +THIA100T67 PO
[2018-04-16] MEDS ORDERED: SODIUM CHLORIDE 0.9% 1,000ML IVBOLUS ONE (11:30)
[2018-04-16] MEDS ORDERED: ONDANSETRON 2MG/ML, 2ML IVPush ONE (11:30)
[2018-04-16] MEDS ORDERED: SODIUM CHLORIDE FLUSH 10ML SYR IVF ONE (11:30)
[2018-04-16 11:37] LABS: MICROSCOPIC INDICATED
[2018-04-16] MEDS ORDERED: ONDANSETRON 2MG/ML, 2ML ONE (11:44)
[2018-04-16] MEDS ORDERED: MORPHINE SULFATE 4 MG/ML, 1ML ONE ×2 (11:45→13:18)
[2018-04-16 11:53] LABS: CULTURE INDICATED? YES
[2018-04-16] MEDS: MORPHINE SULFATE 4 MG/ML, 1ML IVPush PRN ×2 (11:54→13:28)
[2018-04-16 12:02] LABS: ALANINE AMINOTRANSFERASE 36 U/L (12-78); ALBUMIN 2.9 g/dL (3.4-5.0); ANION GAP 9 mmol/L (5-15); CALCIUM 8.9 mg/dL (8.5-10.1); CHLORIDE 111 mmol/L (98-107); CREATININE 0.65 mg/dL (0.55-1.02)
[2018-04-16 12:04] LABS: ALKALINE PHOSPHATASE 160 U/L (45-117); BILIRUBIN,TOTAL 1.7 mg/dL (0.2-1.0); TOTAL PROTEIN 6.8 g/dL (6.4-8.2)
[2018-04-16 12:12] LABS: MEAN CORPUSCULAR HEMOGLOBIN 32.4 pg (27.0-34.8); MEAN CORPUSCULAR HGB CONC 33.9 g/dL (32.4-35.8); MEAN CORPUSCULAR VOLUME 95.7 fL (80-100); RED BLOOD COUNT 4.38 x10^6/uL (3.82-5.3); RED CELL DISTRIBUTION WIDTH 15.3 % (9.6-15.2)
[2018-04-16 12:15] LABS: MEAN PLATELET VOLUME 9.4 fL (7.4-10.4); PLATELET COUNT 77 x10^3/uL (130-400)
[2018-04-16 12:16] LABS: MD YES
[2018-04-16 12:20] LABS: BAND#(MANUAL) 0.18 x10^3/uL; BANDS%(MANUAL) 5 % (0-7); EOS#(MANUAL) 0.04 x10^3/uL (0.0-0.4); EOS% (MANUAL) 1 % (1-7); LYMPH#(MANUAL) 0.77 x10^3/uL (1-3.4); LYMPHS% (MANUAL) 22 % (22-44); MONOS#(MANUAL) 0.56 x10^3/uL (0.3-2.7); MONOS% (MANUAL) 16 % (2-9); REACTIVE LYMPHS # (MANUAL) 0.07 x10^3/uL (0-0); REACTIVE LYMPHS % (MANUAL) 2 % (0-0); SEG#(MANUAL) 1.89 x10^3/uL (1.8-6.8); SEGS% (MANUAL) 54 % (42-75)
[2018-04-16 12:21] LABS: <PLATELET ESTIMATE> DECREASED; <PLT MORPHOLOGY> NORMAL PLT MORPH; <RBC MORPHOLOGY> NORMAL
[2018-04-16] MEDS: SODIUM CHLORIDE 0.9% 1,000 ML IV SCH (13:26)
[2018-04-16] MEDS ORDERED: ALBUTEROL SULFATE 2.5 MG/3 ML NPPB PRN (13:30)
[2018-04-16] MEDS ORDERED: ALBUTEROL SULFATE 2.5 MG/3 ML NEB PRN (13:30)
[2018-04-16 14:04] LABS: CLOSTRIDIUM DIFFICILE ANTIGEN NEGATIVE; CLOSTRIDIUM DIFFICILE TOXIN NEGATIVE (Negative)
[2018-04-16] MEDS: morphine SULFATE 10 MG/ML, 1ML IVPush PRN (18:13)
[2018-04-16] MEDS: FAMOTIDINE 20 MG TABLET PO SCH (21:04)
[2018-04-16 22:37] VITALS: BP 145/92
[2018-04-17] MEDS: morphine SULFATE 10 MG/ML, 1ML IVPush PRN ×2 (01:21→08:15)
[2018-04-17] MEDS: ONDANSETRON 2MG/ML, 2ML IVPush PRN ×2 (01:24→08:15)
[2018-04-17 03:22] VITALS: BP 131/82
[2018-04-17] MEDS: SODIUM CHLORIDE 0.9% 1,000 ML IV SCH ×2 (04:12→16:39)
[2018-04-17 05:55] LABS: ALBUMIN 2.4 g/dL (3.4-5.0); ANION GAP 10 mmol/L (5-15); CALCIUM 8.1 mg/dL (8.5-10.1); CHLORIDE 114 mmol/L (98-107)
[2018-04-17 05:58] LABS: ALANINE AMINOTRANSFERASE 32 U/L (12-78); ALKALINE PHOSPHATASE 145 U/L (45-117); BILIRUBIN,TOTAL 1.4 mg/dL (0.2-1.0); CREATININE 0.56 mg/dL (0.55-1.02); TOTAL PROTEIN 5.7 g/dL (6.4-8.2)
[2018-04-17 08:00] VITALS: BP 113/75
[2018-04-17] MEDS: FAMOTIDINE 20 MG TABLET PO SCH ×2 (09:12→20:10)
[2018-04-17] MEDS ORDERED: OXYcodone IR 5MG TABLET ONE (11:10)
[2018-04-17] MEDS: OXYcodone IR 5MG TABLET PO PRN ×2 (11:12→18:34)
[2018-04-17 13:12] VITALS: BP 118/76
[2018-04-17 14:00] VITALS: BP 114/77
[2018-04-17 19:57] VITALS: BP 117/78
[2018-04-18 01:01] VITALS: BP 107/67
[2018-04-18] MEDS: OXYcodone IR 5MG TABLET PO PRN (01:05)
[2018-04-18 07:11] VITALS: BP 109/67
[2018-04-18] MEDS: FAMOTIDINE 20 MG TABLET PO SCH (08:10)
== END 2018-04-18 10:11 | disposition home health service (06) | DRG 432 ==
LOC: ED 11:42 → EDIP 12:36 → 4NOR 14:01 → DCLOUNGE 04-18 10:11
PROVIDERS: ADMIT Hospitalist; ATTEND Internal Medicine
DX: K70.40 Alcoholic hepatic failure without coma (principal); E43 Unspecified severe protein-calorie malnutrition; A08.4 Viral intestinal infection, unspecified; K70.30 Alcoholic cirrhosis of liver without ascites; J44.9 Chronic obstructive pulmonary disease, unspecified; G47.33 Obstructive sleep apnea (adult) (pediatric); I10 Essential (primary) hypertension; E66.9 Obesity, unspecified; F41.8 Other specified anxiety disorders; D69.6 Thrombocytopenia, unspecified; D63.8 Anemia in other chronic diseases classified elsewhere; E86.0 Dehydration; I25.2 Old myocardial infarction; Z91.19 Patient's noncompliance with other medical treatment and regimen; Z86.718 Personal history of other venous thrombosis and embolism; Z87.11 Personal history of peptic ulcer disease; Z90.49 Acquired absence of other specified parts of digestive tract; Z88.6 Allergy status to analgesic agent; Z68.33 Body mass index [BMI] 33.0-33.9, adult
CPT/HCPCS: 36415; 80053; 81001; 83605; 85025; 87086; 87324; 89055; 96361; 96374; 96375; 96376; G0378; J2405; J2270; J7030

== ENCOUNTER 2018-04-20 16:02 | Emergency (ER) | payer MEDICAID ==
[~2018-04-20] VITALS: Ht 160 cm; Wt 80.0 kg
[2018-04-20] MEDS ORDERED: ONDANSETRON 2MG/ML, 2ML IVPush ONE (16:30)
[2018-04-20] MEDS ORDERED: FAMOTIDINE 20 MG/2 ML IVP ONE (16:30)
[2018-04-20] MEDS ORDERED: PLEASE ENTER HEIGHT AND WEIGHT MC SCH (16:30)
[2018-04-20] MEDS ORDERED: SODIUM CHLORIDE FLUSH 10ML SYR IVF ONE (16:30)
[2018-04-20] MEDS ORDERED: SODIUM CHLORIDE 0.9% 1,000ML IVBOLUS ONE (16:30)
[2018-04-20] MEDS ORDERED: FAMOTIDINE 20 MG/2 ML ONE (17:13)
[2018-04-20] MEDS ORDERED: ONDANSETRON 2MG/ML, 2ML ONE (17:13)
[2018-04-20 17:14] LABS: ALANINE AMINOTRANSFERASE 30 U/L (12-78); ALBUMIN 2.5 g/dL (3.4-5.0); ANION GAP 7 mmol/L (5-15); CALCIUM 8.2 mg/dL (8.5-10.1); CHLORIDE 111 mmol/L (98-107); CREATININE 0.52 mg/dL (0.55-1.02)
[2018-04-20 17:16] LABS: ACETONE, SERUM Negative (Negative)
[2018-04-20 17:17] LABS: ALKALINE PHOSPHATASE 133 U/L (45-117); BILIRUBIN,TOTAL 1.7 mg/dL (0.2-1.0); TOTAL PROTEIN 6.1 g/dL (6.4-8.2)
[2018-04-20 17:38] LABS: BASOPHILS # (AUTO) 0.02 x10^3/uL (0-0.1); BASOPHILS % (AUTO) 1 % (0-1); EOSINOPHILS # (AUTO) 0.18 x10^3/uL (0-0.4); EOSINOPHILS % (AUTO) 6 % (1-7); LYMPHOCYTES # (AUTO) 0.73 x10^3/uL (1-3.4); LYMPHOCYTES % (AUTO) 23 % (22-44); MD MORPH REVIEW ONLY; MEAN CORPUSCULAR HEMOGLOBIN 31.6 pg (27.0-34.8); MEAN CORPUSCULAR HGB CONC 33.5 g/dL (32.4-35.8); MEAN CORPUSCULAR VOLUME 94.3 fL (80-100); MEAN PLATELET VOLUME 9.5 fL (7.4-10.4); MONOCYTES # (AUTO) 0.51 x10^3/uL (0.2-0.8); MONOCYTES % (AUTO) 16 % (2-9); NEUTROPHILS % (AUTO) 55 % (42-75); PLATELET COUNT 61 x10^3/uL (130-400); RED BLOOD COUNT 4.06 x10^6/uL (3.82-5.3); RED CELL DISTRIBUTION WIDTH 15.1 % (9.6-15.2)
[2018-04-20 17:39] LABS: <PLATELET ESTIMATE> DECREASED; <PLT MORPHOLOGY> NORMAL PLT MORPH; <RBC MORPHOLOGY> NORMAL
[2018-04-20 18:07] LABS: CULTURE INDICATED? YES; MICROSCOPIC INDICATED
[2018-04-20 18:29] VITALS: BP 113/69
== END 2018-04-20 18:31 | disposition home or self-care (01) ==
LOC: ED 16:02
DX: K52.89 Other specified noninfective gastroenteritis and colitis (principal); E86.0 Dehydration; J44.9 Chronic obstructive pulmonary disease, unspecified; I25.2 Old myocardial infarction; E11.9 Type 2 diabetes mellitus without complications; I10 Essential (primary) hypertension; Z90.49 Acquired absence of other specified parts of digestive tract
CPT/HCPCS: 36415; 74022; 80053; 81001; 82010; 83605; 83690; 85025; 87086; 93005; 96361; 96374; 96375; 99285; J2405; J7030; S0028

== ENCOUNTER 2018-05-01 16:24 | Emergency (ER) | payer MEDICAID ==
[~2018-05-01] VITALS: Ht 160 cm; Wt 81.0 kg
[2018-05-01] MEDS ORDERED: PANTOPRAZOLE 40 MG IV IVPush ONE (17:00)
[2018-05-01] MEDS ORDERED: KETOROLAC 30 MG/1 ML IVPush ONE (17:00)
[2018-05-01] MEDS ORDERED: ONDANSETRON 2MG/ML, 2ML IVPush ONE (17:00)
[2018-05-01] MEDS ORDERED: ONDANSETRON 2MG/ML, 2ML ONE (17:06)
[2018-05-01] MEDS ORDERED: PANTOPRAZOLE 40 MG IV ONE (17:07)
[2018-05-01] MEDS ORDERED: KETOROLAC 30 MG/1 ML ONE (17:07)
[2018-05-01 17:22] LABS: ALBUMIN 2.9 g/dL (3.4-5.0); ANION GAP 8 mmol/L (5-15); CALCIUM 7.7 mg/dL (8.5-10.1); CHLORIDE 116 mmol/L (98-107)
[2018-05-01 17:25] LABS: ALANINE AMINOTRANSFERASE 33 U/L (12-78); ALKALINE PHOSPHATASE 146 U/L (45-117); BILIRUBIN,TOTAL 1.9 mg/dL (0.2-1.0); TOTAL PROTEIN 6.6 g/dL (6.4-8.2)
[2018-05-01 17:37] LABS: MEAN CORPUSCULAR HEMOGLOBIN 32.4 pg (27.0-34.8); MEAN CORPUSCULAR HGB CONC 33.9 g/dL (32.4-35.8); MEAN CORPUSCULAR VOLUME 95.5 fL (80-100); MEAN PLATELET VOLUME 9.5 fL (7.4-10.4); PLATELET COUNT 74 x10^3/uL (130-400); RED BLOOD COUNT 4.33 x10^6/uL (3.82-5.3); RED CELL DISTRIBUTION WIDTH 15.6 % (9.6-15.2)
[2018-05-01 17:44] LABS: MD YES
[2018-05-01 17:48] LABS: EOS#(MANUAL) 0.09 x10^3/uL (0.0-0.4); EOS% (MANUAL) 3 % (1-7); LYMPH#(MANUAL) 0.84 x10^3/uL (1-3.4); LYMPHS% (MANUAL) 27 % (22-44); MONOS#(MANUAL) 0.28 x10^3/uL (0.3-2.7); MONOS% (MANUAL) 9 % (2-9); SEG#(MANUAL) 1.89 x10^3/uL (1.8-6.8); SEGS% (MANUAL) 61 % (42-75)
[2018-05-01 17:50] LABS: <PLATELET ESTIMATE> DECREASED; <PLT MORPHOLOGY> NORMAL PLT MORPH; ANISOCYTOSIS 1+
[2018-05-01] MEDS ORDERED: OMNIPAQUE 350 MG/ML, 100ML BOTTLE ONE (18:21)
[2018-05-01] MEDS ORDERED: MORPHINE SULFATE 4 MG/ML, 1ML ONE (19:59)
[2018-05-01] MEDS ORDERED: MORPHINE SULFATE 4 MG/ML, 1ML IVPush ONE (20:00)
[2018-05-01 20:37] VITALS: BP 106/65
== END 2018-05-01 20:47 | disposition home or self-care (01) ==
LOC: ED 20:24
DX: R19.7 Diarrhea, unspecified (principal); R11.2 Nausea with vomiting, unspecified; R10.9 Unspecified abdominal pain; J44.9 Chronic obstructive pulmonary disease, unspecified; I10 Essential (primary) hypertension; E11.9 Type 2 diabetes mellitus without complications; I95.9 Hypotension, unspecified
CPT/HCPCS: 36415; 74021; 74177; 80053; 83690; 85025; 96374; 96375; 99285; C9113; J1885; J2405; Q9967

== ENCOUNTER 2018-05-17 10:02 | Emergency (ER) | payer MEDICAID ==
[~2018-05-17] VITALS: Ht 160 cm; Wt 78.0 kg
[2018-05-17 10:07] VITALS: BP 138/96
[2018-05-17] MEDS ORDERED: FAMOTIDINE 20 MG/2 ML IVP ONE (10:30)
[2018-05-17] MEDS ORDERED: SODIUM CHLORIDE FLUSH 10ML SYR IVF ONE (10:30)
[2018-05-17] MEDS ORDERED: SODIUM CHLORIDE 0.9% 1,000ML IVBOLUS ONE (10:30)
[2018-05-17] MEDS ORDERED: MORPHINE SULFATE 4 MG/ML, 1ML IVPush PRN (10:30)
[2018-05-17] MEDS ORDERED: ONDANSETRON 2MG/ML, 2ML IVPush ONE (10:30)
[2018-05-17 10:52] LABS: ALBUMIN 2.9 g/dL (3.4-5.0); ANION GAP 10 mmol/L (5-15); CALCIUM 9.3 mg/dL (8.5-10.1); CHLORIDE 114 mmol/L (98-107)
[2018-05-17 10:56] LABS: ALANINE AMINOTRANSFERASE 37 U/L (12-78); ALKALINE PHOSPHATASE 172 U/L (45-117); BILIRUBIN,TOTAL 1.5 mg/dL (0.2-1.0); CREATININE 0.39 mg/dL (0.55-1.02); TOTAL PROTEIN 6.7 g/dL (6.4-8.2)
[2018-05-17] MEDS ORDERED: MORPHINE SULFATE 4 MG/ML, 1ML ONE (10:56)
[2018-05-17] MEDS ORDERED: ONDANSETRON 2MG/ML, 2ML ONE (10:56)
[2018-05-17] MEDS ORDERED: FAMOTIDINE 20 MG/2 ML ONE (10:56)
[2018-05-17 11:09] LABS: MD SCAN; MEAN CORPUSCULAR HEMOGLOBIN 32.2 pg (27.0-34.8); MEAN CORPUSCULAR VOLUME 94.7 fL (80-100); MEAN PLATELET VOLUME 9.1 fL (7.4-10.4); PLATELET COUNT 88 x10^3/uL (130-400); RED BLOOD COUNT 4.42 x10^6/uL (3.82-5.3); RED CELL DISTRIBUTION WIDTH 15.4 % (9.6-15.2)
[2018-05-17 11:10] LABS: BASOPHILS # (AUTO) 0.03 x10^3/uL (0-0.1); BASOPHILS % (AUTO) 1 % (0-1); EOSINOPHILS # (AUTO) 0.26 x10^3/uL (0-0.4); EOSINOPHILS % (AUTO) 7 % (1-7); LYMPHOCYTES # (AUTO) 0.92 x10^3/uL (1-3.4); LYMPHOCYTES % (AUTO) 24 % (22-44); MONOCYTES # (AUTO) 0.39 x10^3/uL (0.2-0.8); MONOCYTES % (AUTO) 10 % (2-9); NEUTROPHILS # (AUTO) 2.26 x10^3/uL (1.8-6.8); NEUTROPHILS % (AUTO) 59 % (42-75)
== END 2018-05-17 12:29 | disposition home or self-care (01) ==
LOC: ED 10:22
DX: K29.20 Alcoholic gastritis without bleeding (principal); K70.30 Alcoholic cirrhosis of liver without ascites; R94.5 Abnormal results of liver function studies; J44.9 Chronic obstructive pulmonary disease, unspecified; E11.9 Type 2 diabetes mellitus without complications; I10 Essential (primary) hypertension
CPT/HCPCS: 36415; 74022; 80053; 83690; 85025; 96361; 96374; 96375; 99285; J2405; J3490; J7030

== ENCOUNTER 2018-05-31 14:49 | Emergency (ER) | payer MEDICAID ==
[~2018-05-31] VITALS: Ht 160 cm; Wt 80.1 kg
[2018-05-31 17:32] VITALS: BP 132/94
== END 2018-05-31 18:39 | disposition left against medical advice (07) ==
LOC: ED 18:33
DX: R10.9 Unspecified abdominal pain (principal); Z53.21 Procedure and treatment not carried out due to patient leaving prior to being seen by health care provider

== ENCOUNTER 2018-06-10 11:39 | Inpatient (IN) | payer MEDICAID ==
[~2018-06-10] VITALS: Ht 160 cm; Wt 85.5 kg
[2018-06-10] MEDS ORDERED: FAMOTIDINE 20 MG/2 ML ONE (12:14)
[2018-06-10] MEDS ORDERED: DICYCLOMINE 20 MG TABLET ONE (12:18)
[2018-06-10] MEDS ORDERED: SODIUM CHLORIDE FLUSH 10ML SYR IVF ONE (12:30)
[2018-06-10] MEDS ORDERED: FAMOTIDINE 20 MG/2 ML IVP ONE (12:30)
[2018-06-10] MEDS ORDERED: DICYCLOMINE 20 MG TABLET PO ONE (12:30)
[2018-06-10 13:04] LABS: ALANINE AMINOTRANSFERASE 31 U/L (12-78); ALBUMIN 2.8 g/dL (3.4-5.0); ANION GAP 8 mmol/L (5-15); CHLORIDE 114 mmol/L (98-107)
[2018-06-10] MEDS ORDERED: ONDANSETRON 2MG/ML, 2ML ONE (13:05)
[2018-06-10] MEDS ORDERED: MORPHINE SULFATE 4 MG/ML, 1ML ONE (13:05)
[2018-06-10 13:10] LABS: ALKALINE PHOSPHATASE 165 U/L (45-117); BILIRUBIN,TOTAL 1.1 mg/dL (0.2-1.0); CREATININE 0.47 mg/dL (0.55-1.02); TOTAL PROTEIN 6.6 g/dL (6.4-8.2)
[2018-06-10] MEDS ORDERED: MORPHINE SULFATE 4 MG/ML, 1ML IVPush PRN (13:30)
[2018-06-10] MEDS ORDERED: ONDANSETRON 2MG/ML, 2ML IVPush ONE (13:30)
[2018-06-10 13:36] LABS: ACETONE, SERUM Negative (Negative)
[2018-06-10 13:40] LABS: MEAN CORPUSCULAR HEMOGLOBIN 32.1 pg (27.0-34.8); MEAN CORPUSCULAR HGB CONC 33.9 g/dL (32.4-35.8); MEAN CORPUSCULAR VOLUME 94.8 fL (80-100); MEAN PLATELET VOLUME 8.6 fL (7.4-10.4); PLATELET COUNT 77 x10^3/uL (130-400); RED CELL DISTRIBUTION WIDTH 15.6 % (9.6-15.2)
[2018-06-10 13:42] LABS: BASOPHILS % (AUTO) 0 % (0-1); EOSINOPHILS # (AUTO) 0.05 x10^3/uL (0-0.4); EOSINOPHILS % (AUTO) 2 % (1-7); LYMPHOCYTES # (AUTO) 0.65 x10^3/uL (1-3.4); LYMPHOCYTES % (AUTO) 24 % (22-44); MD SCAN; MONOCYTES # (AUTO) 0.29 x10^3/uL (0.2-0.8); MONOCYTES % (AUTO) 11 % (2-9); NEUTROPHILS # (AUTO) 1.74 x10^3/uL (1.8-6.8); NEUTROPHILS % (AUTO) 64 % (42-75)
[2018-06-10] MEDS ORDERED: LACTULOSE 20 GM/30 ML UDC PO ONE (14:00)
[2018-06-10] MEDS ORDERED: NS + 20MEQ KCL 1,000 ML IV SCH (14:08)
[2018-06-10] MEDS ORDERED: ACETAMINOPHEN 325 MG TABLET PO PRN (14:30)
[2018-06-10] MEDS ORDERED: SODIUM CHLORIDE FLUSH 10ML SYR IVF PRN (14:30)
[2018-06-10] MEDS ORDERED: POLYETHYLENE GLYCOL 17 GM PACKET PO PRN (14:30)
[2018-06-10] MEDS ORDERED: DOCUSATE 100 MG CAPSULE PO PRN (14:30)
[2018-06-10] MEDS ORDERED: ALBUTEROL SULFATE 2.5 MG/3 ML HHN PRN (14:30)
[2018-06-10] MEDS ORDERED: ONDANSETRON 2MG/ML, 2ML IVPush PRN (14:30)
[2018-06-10] MEDS ORDERED: ALBUTEROL SULFATE 2.5 MG/3 ML NEB PRN (14:30)
[2018-06-10] MEDS: OXYcodone IR 5MG TABLET PO PRN ×3 (17:39→22:41)
[2018-06-10 19:08] VITALS: BP 128/79
[2018-06-10 19:30] LABS: MICROSCOPIC NOT IND
[2018-06-10 19:31] LABS: CULTURE INDICATED? NO
[2018-06-10] MEDS: MORPHINE SULFATE 4 MG/ML, 1ML IVPush PRN (19:34)
[2018-06-10] MEDS: FAMOTIDINE 20 MG TABLET PO SCH (22:39)
[2018-06-10] MEDS: LACTULOSE 10 GM/15 ML UDC PO SCH (22:39)
[2018-06-11 01:10] VITALS: BP 128/83
[2018-06-11] MEDS: MORPHINE SULFATE 4 MG/ML, 1ML IVPush PRN ×4 (03:57→19:49)
[2018-06-11 05:35] LABS: ALBUMIN 2.6 g/dL (3.4-5.0); ANION GAP 4 mmol/L (5-15); CALCIUM 8.1 mg/dL (8.5-10.1); CHLORIDE 113 mmol/L (98-107)
[2018-06-11 05:39] LABS: ALANINE AMINOTRANSFERASE 30 U/L (12-78); ALKALINE PHOSPHATASE 153 U/L (45-117); BILIRUBIN,TOTAL 1.3 mg/dL (0.2-1.0); CREATININE 0.48 mg/dL (0.55-1.02); TOTAL PROTEIN 6.1 g/dL (6.4-8.2)
[2018-06-11 06:10] LABS: MEAN CORPUSCULAR HEMOGLOBIN 33.3 pg (27.0-34.8); MEAN CORPUSCULAR HGB CONC 34.8 g/dL (32.4-35.8); MEAN CORPUSCULAR VOLUME 95.6 fL (80-100); RED BLOOD COUNT 3.62 x10^6/uL (3.82-5.3); RED CELL DISTRIBUTION WIDTH 15.9 % (9.6-15.2)
[2018-06-11 06:47] LABS: MEAN PLATELET VOLUME 9.3 fL (7.4-10.4)
[2018-06-11 06:49] LABS: PLATELET COUNT 45 x10^3/uL (130-400)
[2018-06-11 06:52] LABS: MD YES
[2018-06-11 06:55] LABS: BASOS#(MANUAL) 0.02 x10^3/uL (0-0.1); BASOS% (MANUAL) 1 % (0-1); EOS#(MANUAL) 0.05 x10^3/uL (0.0-0.4); EOS% (MANUAL) 3 % (1-7); LYMPH#(MANUAL) 0.58 x10^3/uL (1-3.4); LYMPHS% (MANUAL) 32 % (22-44); MONOS#(MANUAL) 0.31 x10^3/uL (0.3-2.7); MONOS% (MANUAL) 17 % (2-9); SEG#(MANUAL) 0.85 x10^3/uL (1.8-6.8); SEGS% (MANUAL) 47 % (42-75)
[2018-06-11 06:56] LABS: <PLATELET ESTIMATE> DECREASED; <PLT MORPHOLOGY> NORMAL PLT MORPH; ANISOCYTOSIS 1+
[2018-06-11 06:59] VITALS: BP 127/79
[2018-06-11] MEDS: FAMOTIDINE 20 MG TABLET PO SCH ×2 (09:37→19:49)
[2018-06-11] MEDS: LACTULOSE 10 GM/15 ML UDC PO SCH ×2 (09:37→19:49)
[2018-06-11] MEDS: OXYcodone IR 5MG TABLET PO PRN ×3 (11:54→22:53)
[2018-06-11 14:36] VITALS: BP 125/81
[2018-06-11 18:52] VITALS: BP 118/75
[2018-06-12 00:21] VITALS: BP 126/77
[2018-06-12] MEDS: MORPHINE SULFATE 4 MG/ML, 1ML IVPush PRN ×5 (00:26→20:04)
[2018-06-12 05:33] LABS: INTERNATIONAL NORMALIZED RATIO 1.2 (0.93-1.1); PROTHROMBIN TIME 12.6 Seconds (9.6-11.5)
[2018-06-12 05:36] LABS: ANION GAP 7 mmol/L (5-15); CALCIUM 8.1 mg/dL (8.5-10.1); CHLORIDE 107 mmol/L (98-107); CREATININE 0.51 mg/dL (0.55-1.02)
[2018-06-12] MEDS: OXYcodone IR 5MG TABLET PO PRN (06:18)
[2018-06-12] MEDS ORDERED: LACTULOSE 10 GM/15 ML UDC PO ONE (06:30)
[2018-06-12 06:43] VITALS: BP 113/74
[2018-06-12] MEDS: FAMOTIDINE 20 MG TABLET PO SCH ×2 (09:05→20:04)
[2018-06-12] MEDS: LACTULOSE 10 GM/15 ML UDC PO SCH ×3 (09:05→20:04)
[2018-06-12 09:24] LABS: MEAN CORPUSCULAR HEMOGLOBIN 31.5 pg (27.0-34.8); MEAN CORPUSCULAR HGB CONC 33.4 g/dL (32.4-35.8); MEAN CORPUSCULAR VOLUME 94.5 fL (80-100); MEAN PLATELET VOLUME 9.4 fL (7.4-10.4); RED BLOOD COUNT 3.57 x10^6/uL (3.82-5.3); RED CELL DISTRIBUTION WIDTH 15.4 % (9.6-15.2)
[2018-06-12 09:26] LABS: PLATELET COUNT 44 x10^3/uL (130-400)
[2018-06-12 09:34] LABS: BASOPHILS # (AUTO) 0.01 x10^3/uL (0-0.1); BASOPHILS % (AUTO) 1 % (0-1); EOSINOPHILS # (AUTO) 0.07 x10^3/uL (0-0.4); EOSINOPHILS % (AUTO) 5 % (1-7); LYMPHOCYTES % (AUTO) 31 % (22-44); MD SCAN; MONOCYTES # (AUTO) 0.22 x10^3/uL (0.2-0.8); MONOCYTES % (AUTO) 17 % (2-9); NEUTROPHILS # (AUTO) 0.59 x10^3/uL (1.8-6.8); NEUTROPHILS % (AUTO) 46 % (42-75)
[2018-06-12 12:31] VITALS: BP 115/82
[2018-06-12] MEDS ORDERED: NS + 20MEQ KCL 1,000 ML IV SCH (13:30)
[2018-06-12 18:42] VITALS: BP 110/71
[2018-06-13] MEDS: MORPHINE SULFATE 4 MG/ML, 1ML IVPush PRN ×4 (00:05→14:15)
[2018-06-13 01:18] VITALS: BP 127/83
[2018-06-13] MEDS: LACTULOSE 10 GM/15 ML UDC PO SCH ×3 (05:07→16:34)
[2018-06-13 06:02] LABS: CALCIUM 8.5 mg/dL (8.5-10.1); CHLORIDE 109 mmol/L (98-107)
[2018-06-13 06:03] LABS: MEAN CORPUSCULAR HEMOGLOBIN 32.5 pg (27.0-34.8); MEAN CORPUSCULAR HGB CONC 34.2 g/dL (32.4-35.8); RED BLOOD COUNT 3.78 x10^6/uL (3.82-5.3); RED CELL DISTRIBUTION WIDTH 15.1 % (9.6-15.2)
[2018-06-13 06:09] LABS: ALANINE AMINOTRANSFERASE 39 U/L (12-78); ALBUMIN 2.7 g/dL (3.4-5.0); ALKALINE PHOSPHATASE 194 U/L (45-117); ANION GAP 5 mmol/L (5-15); BILIRUBIN,TOTAL 1.6 mg/dL (0.2-1.0); TOTAL PROTEIN 6.4 g/dL (6.4-8.2)
[2018-06-13 06:32] VITALS: BP 124/80
[2018-06-13 06:43] LABS: MEAN PLATELET VOLUME 9.6 fL (7.4-10.4)
[2018-06-13 06:44] LABS: PLATELET COUNT 43 x10^3/uL (130-400)
[2018-06-13 06:45] LABS: BASOPHILS # (AUTO) 0.01 x10^3/uL (0-0.1); BASOPHILS % (AUTO) 0 % (0-1); EOSINOPHILS # (AUTO) 0.03 x10^3/uL (0-0.4); EOSINOPHILS % (AUTO) 2 % (1-7); LYMPHOCYTES # (AUTO) 0.31 x10^3/uL (1-3.4); LYMPHOCYTES % (AUTO) 17 % (22-44); MD SCAN; MONOCYTES # (AUTO) 0.19 x10^3/uL (0.2-0.8); MONOCYTES % (AUTO) 11 % (2-9); NEUTROPHILS # (AUTO) 1.27 x10^3/uL (1.8-6.8); NEUTROPHILS % (AUTO) 70 % (42-75)
[2018-06-13] MEDS: FAMOTIDINE 20 MG TABLET PO SCH (08:54)
[2018-06-13 12:17] VITALS: BP 125/82
[2018-06-13] MEDS ORDERED: LACT10SO5 PO (14:04)
[2018-06-13] MEDS ORDERED: PRED5TAB PO (14:04)
== END 2018-06-13 17:21 | disposition home or self-care (01) | DRG 441 ==
LOC: ED 12:13 → SUATTDRO 13:55 → EDIP 14:08 → 3NE 15:23
PROVIDERS: ADMIT Family Medicine; ATTEND Family Medicine
DX: K72.90 Hepatic failure, unspecified without coma (principal); E43 Unspecified severe protein-calorie malnutrition; I81 Portal vein thrombosis; Z99.11 Dependence on respirator [ventilator] status; D68.4 Acquired coagulation factor deficiency; D69.59 Other secondary thrombocytopenia; E11.9 Type 2 diabetes mellitus without complications; E66.01 Morbid (severe) obesity due to excess calories; F10.229 Alcohol dependence with intoxication, unspecified; F41.1 Generalized anxiety disorder; G47.33 Obstructive sleep apnea (adult) (pediatric); G89.29 Other chronic pain; I10 Essential (primary) hypertension; I25.2 Old myocardial infarction; J44.9 Chronic obstructive pulmonary disease, unspecified; K70.11 Alcoholic hepatitis with ascites; K70.31 Alcoholic cirrhosis of liver with ascites; Z86.718 Personal history of other venous thrombosis and embolism; Z87.11 Personal history of peptic ulcer disease; Z91.19 Patient's noncompliance with other medical treatment and regimen; Z99.81 Dependence on supplemental oxygen; M17.10 Unilateral primary osteoarthritis, unspecified knee; D70.9 Neutropenia, unspecified; Z88.8 Allergy status to other drugs, medicaments and biological substances; Z68.33 Body mass index [BMI] 33.0-33.9, adult; Z90.49 Acquired absence of other specified parts of digestive tract
CPT/HCPCS: 36415; 99285; J3490; 74177; 80048; 80053; 80074; 80307; 81003; 82010; 82140; 83605; 83690; 83735; 83880; 85025; 85610; 96374; G0378; J2405; J3480; J7512

== ENCOUNTER 2018-07-13 15:52 | Emergency (ER) | payer MEDICAID ==
[~2018-07-13] VITALS: Ht 160 cm; Wt 83.8 kg
[~2018-07-13 15:52] MED LIST changes: +PRED5TAB PO
[2018-07-13] MEDS ORDERED: PROP20TA PO (16:16)
--- NOTE | 2018-07-13 16:16 | NUR ---
[facility] FROM HOME. PT WITH 3 DAYS DIFFUSE ABD PAIN AND NAUSEA. PT STATES THAT SHE DRANK HEAVILY ON WEDNESDAY. DR. MEHTA AT BEDSIDE. POC DISCUSSED AND ORDERS REC'D. PT ON 02 2L NC, BP AND SP02 MONITORING IN PLACE. CALL LIGHT W/I REACH
[2018-07-13 17:01] LABS: INTERNATIONAL NORMALIZED RATIO 1.1 (0.93-1.1); PROTHROMBIN TIME 11.6 Seconds (9.6-11.5)
[2018-07-13 17:05] LABS: ALBUMIN 2.9 g/dL (3.4-5.0); ANION GAP 10 mmol/L (5-15); CALCIUM 8.6 mg/dL (8.5-10.1); CHLORIDE 114 mmol/L (98-107)
[2018-07-13 17:09] LABS: ALANINE AMINOTRANSFERASE 35 U/L (12-78); ALKALINE PHOSPHATASE 205 U/L (45-117); BILIRUBIN,TOTAL 1.3 mg/dL (0.2-1.0); MEAN CORPUSCULAR HEMOGLOBIN 31.7 pg (27.0-34.8); MEAN CORPUSCULAR HGB CONC 33.7 g/dL (32.4-35.8); MEAN PLATELET VOLUME 9.3 fL (7.4-10.4); PLATELET COUNT 94 x10^3/uL (130-400); RED BLOOD COUNT 4.35 x10^6/uL (3.82-5.3); RED CELL DISTRIBUTION WIDTH 15.9 % (9.6-15.2); TOTAL PROTEIN 6.5 g/dL (6.4-8.2)
[2018-07-13 17:31] LABS: BASOPHILS # (AUTO) 0.03 x10^3/uL (0-0.1); BASOPHILS % (AUTO) 1 % (0-1); EOSINOPHILS # (AUTO) 0.16 x10^3/uL (0-0.4); EOSINOPHILS % (AUTO) 4 % (1-7); LYMPHOCYTES # (AUTO) 1.43 x10^3/uL (1-3.4); LYMPHOCYTES % (AUTO) 37 % (22-44); MD SCAN; MONOCYTES # (AUTO) 0.47 x10^3/uL (0.2-0.8); MONOCYTES % (AUTO) 12 % (2-9); NEUTROPHILS # (AUTO) 1.79 x10^3/uL (1.8-6.8); NEUTROPHILS % (AUTO) 46 % (42-75)
[2018-07-13] MEDS ORDERED: MAALOX/HYOSCYAMINE/LIDOCAINE 45 ML BTL ONE (18:27)
[2018-07-13 18:28] VITALS: BP 110/73
--- NOTE | 2018-07-13 18:46 | NUR ---
Patient/Caregiver given discharge instructions and they have confirmed that they understand the instructions. Patient ambulatory with steady gait.
[2018-07-13] MEDS ORDERED: MAALOX/HYOSCYAMINE/LIDOCAINE 45 ML BTL PO ONE (19:00)
== END 2018-07-13 18:47 | disposition home or self-care (01) ==
LOC: ED 16:55
DX: K29.20 Alcoholic gastritis without bleeding (principal); F10.10 Alcohol abuse, uncomplicated; J44.9 Chronic obstructive pulmonary disease, unspecified; F32.9 Major depressive disorder, single episode, unspecified; E11.9 Type 2 diabetes mellitus without complications; I25.2 Old myocardial infarction; Z90.49 Acquired absence of other specified parts of digestive tract; Y90.9 Presence of alcohol in blood, level not specified
CPT/HCPCS: 36415; 74021; 80053; 83690; 85025; 85610; 85730; 99284

== ENCOUNTER 2018-08-03 09:24 | Emergency (ER) | payer MEDICAID ==
[~2018-08-03] VITALS: Ht 160 cm; Wt 78.0 kg
[~2018-08-03 09:24] MED LIST changes: +PROP20TA PO
--- NOTE | 2018-08-03 09:36 | NUR ---
patient BIB [facility] from home, black tarry stools, N/V/D, abd pain all worsening since wednesday. 100 mcg fentanyl IM and 4 mg zofran IM given by EMS, VSS on room air in ER, NSR on EKG, pain 6.5/10 now, 2L NC now with 02 sats 94% now. JONATHAN Haynes at bedside now, patient is PWD, slight yellow tint to some skin, call light in reach, no additional needs now.
--- NOTE | 2018-08-03 09:43 | NUR ---
KNIT GOODS PRESS HAND PA FOR RECTAL EXAM.
[2018-08-03] MEDS ORDERED: HYDROmorphone 2 MG/ML, 1ML IVPush PRN (10:00)
[2018-08-03] MEDS ORDERED: SODIUM CHLORIDE FLUSH 10ML SYR IVF ONE (10:00)
[2018-08-03] MEDS ORDERED: ONDANSETRON 2MG/ML, 2ML IVPush ONE (10:00)
[2018-08-03] MEDS ORDERED: HYDROmorphone 1 MG/ML, 1ML ONE ×2 (10:05→12:34)
[2018-08-03] MEDS ORDERED: ONDANSETRON 2MG/ML, 2ML ONE (10:06)
--- NOTE | 2018-08-03 10:13 | NUR ---
US IV started by this RN and blood drawn then. Prepared to medicate per MAR, patient off unit for imaging.
--- NOTE | 2018-08-03 10:34 | NUR ---
ultrasound at bedside, medicated per MAR, no acute changes apart from pain/nausea
[2018-08-03 10:43] LABS: INTERNATIONAL NORMALIZED RATIO 1.08 (0.93-1.1); PROTHROMBIN TIME 11.4 Seconds (9.6-11.5)
[2018-08-03 10:47] LABS: ALANINE AMINOTRANSFERASE 35 U/L (12-78); ALBUMIN 2.8 g/dL (3.4-5.0); ANION GAP 4 mmol/L (5-15); CALCIUM 8.4 mg/dL (8.5-10.1); CHLORIDE 121 mmol/L (98-107)
[2018-08-03 10:50] LABS: ALKALINE PHOSPHATASE 211 U/L (45-117); BILIRUBIN,TOTAL 1.1 mg/dL (0.2-1.0); CREATININE 0.64 mg/dL (0.55-1.02); TOTAL PROTEIN 6.8 g/dL (6.4-8.2)
[2018-08-03 11:12] LABS: BASOPHILS # (AUTO) 0.03 x10^3/uL (0-0.1); BASOPHILS % (AUTO) 1 % (0-1); EOSINOPHILS # (AUTO) 0.23 x10^3/uL (0-0.4); EOSINOPHILS % (AUTO) 6 % (1-7); LYMPHOCYTES # (AUTO) 1.56 x10^3/uL (1-3.4); LYMPHOCYTES % (AUTO) 43 % (22-44); MD SCAN; MEAN CORPUSCULAR HEMOGLOBIN 31.7 pg (27.0-34.8); MEAN CORPUSCULAR HGB CONC 32.4 g/dL (32.4-35.8); MEAN CORPUSCULAR VOLUME 97.9 fL (80-100); MEAN PLATELET VOLUME 9.4 fL (7.4-10.4); MONOCYTES # (AUTO) 0.32 x10^3/uL (0.2-0.8); MONOCYTES % (AUTO) 9 % (2-9); NEUTROPHILS # (AUTO) 1.51 x10^3/uL (1.8-6.8); NEUTROPHILS % (AUTO) 41 % (42-75); PLATELET COUNT 98 x10^3/uL (130-400); RED BLOOD COUNT 4.29 x10^6/uL (3.82-5.3); RED CELL DISTRIBUTION WIDTH 17.1 % (9.6-15.2)
[2018-08-03] MEDS ORDERED: HYDROmorphone 1 MG/ML, 1ML IV ONE (12:30)
--- NOTE | 2018-08-03 12:49 | NUR ---
patient medicated with a 2nd IV dilaudid 1mg dose per JONATHAN Gonzalez, discharge instructions reviewed and all questions answered, this RN to monitor vitals for ~ 15 more minutes and then discharge patient.
[2018-08-03 13:38] VITALS: BP 135/74
--- NOTE | 2018-08-03 13:39 | NUR ---
pt d/c home, rx given, taking bus reports readiness for d/c
== END 2018-08-03 13:40 | disposition home or self-care (01) ==
LOC: ED 10:38
DX: G89.29 Other chronic pain (principal); R10.11 Right upper quadrant pain; R10.13 Epigastric pain; F41.1 Generalized anxiety disorder; J44.9 Chronic obstructive pulmonary disease, unspecified; E11.9 Type 2 diabetes mellitus without complications; Z72.9 Problem related to lifestyle, unspecified; I10 Essential (primary) hypertension; G43.909 Migraine, unspecified, not intractable, without status migrainosus; Z88.6 Allergy status to analgesic agent; Z88.8 Allergy status to other drugs, medicaments and biological substances; Z79.899 Other long term (current) drug therapy
CPT/HCPCS: 36415; 74022; 76700; 80053; 83690; 85025; 85610; 93005; 96374; 96375; 96376; 99284; J1170; J2405

== ENCOUNTER 2018-08-26 13:11 | Emergency (ER) | payer MEDICAID ==
[~2018-08-26] VITALS: Ht 160 cm; Wt 77.8 kg
[2018-08-26] MEDS ORDERED: SODIUM CHLORIDE FLUSH 10ML SYR IVF ONE (14:30)
[2018-08-26] MEDS ORDERED: ONDANSETRON 2MG/ML, 2ML IVPush ONE (14:30)
[2018-08-26] MEDS ORDERED: FAMOTIDINE 20 MG/2 ML IVP ONE (14:30)
[2018-08-26] MEDS ORDERED: ONDANSETRON 2MG/ML, 2ML ONE (14:38)
[2018-08-26] MEDS ORDERED: FAMOTIDINE 20 MG/2 ML ONE (14:39)
[2018-08-26] MEDS ORDERED: MORPHINE SULFATE 4 MG/ML, 1ML ONE (14:39)
[2018-08-26 14:42] LABS: INTERNATIONAL NORMALIZED RATIO 1.17 (0.93-1.1); PROTHROMBIN TIME 12.3 Seconds (9.6-11.5)
[2018-08-26] MEDS: MORPHINE SULFATE 4 MG/ML, 1ML IVPush PRN ×2 (14:42→15:32)
[2018-08-26 14:43] LABS: ALBUMIN 2.6 g/dL (3.4-5.0); ANION GAP 7 mmol/L (5-15); CALCIUM 8.4 mg/dL (8.5-10.1); CHLORIDE 111 mmol/L (98-107)
--- NOTE | 2018-08-26 14:45 | NUR ---
PIV STARTED. PATIENT MEDICATED WITH PEPCID, ZOFRAN AND MORPINE. WILL CONTINUE TO MONITOR.
[2018-08-26 14:46] LABS: ALANINE AMINOTRANSFERASE 44 U/L (12-78); ALKALINE PHOSPHATASE 172 U/L (45-117); BILIRUBIN,TOTAL 1.5 mg/dL (0.2-1.0); CREATININE 0.66 mg/dL (0.55-1.02); TOTAL PROTEIN 6.4 g/dL (6.4-8.2)
[2018-08-26 15:05] LABS: BASOPHILS # (AUTO) 0.03 x10^3/uL (0-0.1); BASOPHILS % (AUTO) 1 % (0-1); EOSINOPHILS # (AUTO) 0.17 x10^3/uL (0-0.4); EOSINOPHILS % (AUTO) 4 % (1-7); LYMPHOCYTES # (AUTO) 0.84 x10^3/uL (1-3.4); LYMPHOCYTES % (AUTO) 20 % (22-44); MD SCAN; MEAN CORPUSCULAR HEMOGLOBIN 32.9 pg (27.0-34.8); MEAN CORPUSCULAR HGB CONC 34.2 g/dL (32.4-35.8); MEAN CORPUSCULAR VOLUME 96.3 fL (80-100); MEAN PLATELET VOLUME 9.7 fL (7.4-10.4); MONOCYTES # (AUTO) 0.58 x10^3/uL (0.2-0.8); MONOCYTES % (AUTO) 14 % (2-9); NEUTROPHILS # (AUTO) 2.61 x10^3/uL (1.8-6.8); NEUTROPHILS % (AUTO) 62 % (42-75); PLATELET COUNT 86 x10^3/uL (130-400); RED BLOOD COUNT 4.62 x10^6/uL (3.82-5.3); RED CELL DISTRIBUTION WIDTH 16.7 % (9.6-15.2)
--- NOTE | 2018-08-26 16:16 | NUR ---
PT D/C WITH D/C SUMMARY AND SCRIPTS. PT VSS AND UPDATED IN EMR. PT DENIES ANY OTHER NEEDS PERTAINING TO THIS VISIT, AND AMBULATES TO REGISTRATION DESK WITH STEADY GAIT WITH SPOUSE.
[2018-08-26 16:19] VITALS: BP 125/58
== END 2018-08-26 16:22 | disposition home or self-care (01) ==
LOC: ED 14:11
DX: K92.1 Melena (principal); R10.13 Epigastric pain; R19.7 Diarrhea, unspecified; R04.2 Hemoptysis; E11.9 Type 2 diabetes mellitus without complications; I10 Essential (primary) hypertension; F41.1 Generalized anxiety disorder; J44.9 Chronic obstructive pulmonary disease, unspecified; I25.2 Old myocardial infarction; Z90.49 Acquired absence of other specified parts of digestive tract; Z72.9 Problem related to lifestyle, unspecified; Z88.6 Allergy status to analgesic agent; Z87.11 Personal history of peptic ulcer disease
CPT/HCPCS: 36415; 80053; 82140; 83690; 85025; 85610; 85730; 96374; 96375; 96376; 99283; J2405; J3490

== ENCOUNTER 2018-09-04 09:18 | Emergency (ER) | payer MEDICAID ==
[~2018-09-04] VITALS: Ht 160 cm; Wt 78.0 kg
--- NOTE | 2018-09-04 09:27 | NUR ---
Pt BIB [facility] for GI bleed. Pt had EGD 2 weeks ago at [facility]. Last week pt had bleeding in her mough and black stools and was told to wait and see if it will stop. pt stated that she has ulcers in her throat and stomach. Report black tarry stool. Pt is alert, oriented, with NAD. Pt was given 4 mg Zofran SL and 100 mcg Fentanyl IM. BP 119/89, HR 82, o2 Sat 95% on 2L. Pt has COPD and normal O2 Sat is 90% RA. pt is connected to the monitor. call light within reach.
[2018-09-04] MEDS ORDERED: PANTOPRAZOLE 80 MG in SODIUM CHLORIDE 0.9% 50 ML IVPB ONE (09:56)
[2018-09-04] MEDS ORDERED: ONDANSETRON 2MG/ML, 2ML IVPush ONE (10:00)
[2018-09-04] MEDS ORDERED: SODIUM CHLORIDE 0.9% 1,000ML IVBOLUS ONE (10:00)
[2018-09-04] MEDS ORDERED: ONDANSETRON 2MG/ML, 2ML ONE (10:25)
[2018-09-04 10:47] LABS: INTERNATIONAL NORMALIZED RATIO 1.15 (0.93-1.1)
[2018-09-04 10:50] LABS: ALANINE AMINOTRANSFERASE 29 U/L (12-78); ALBUMIN 2.6 g/dL (3.4-5.0); CALCIUM 8.2 mg/dL (8.5-10.1); CREATININE 0.52 mg/dL (0.55-1.02)
[2018-09-04 10:52] LABS: ALKALINE PHOSPHATASE 140 U/L (45-117); BILIRUBIN,TOTAL 1.1 mg/dL (0.2-1.0); TOTAL PROTEIN 6.3 g/dL (6.4-8.2)
[2018-09-04 10:56] LABS: ANION GAP 6 mmol/L (5-15); CHLORIDE 117 mmol/L (98-107)
--- NOTE | 2018-09-04 11:02 | NUR ---
PT IS RESTING IN BED, RESPIRATIONS EQUAL AND NON LABORED. NAD. PT IS CONNECTED TO THE MONITOR. CALL LIGHT WITHIN REACH.
[2018-09-04 11:16] LABS: BASOPHILS # (AUTO) 0.05 x10^3/uL (0-0.1); BASOPHILS % (AUTO) 2 % (0-1); EOSINOPHILS # (AUTO) 0.16 x10^3/uL (0-0.4); EOSINOPHILS % (AUTO) 6 % (1-7); LYMPHOCYTES # (AUTO) 1.06 x10^3/uL (1-3.4); LYMPHOCYTES % (AUTO) 39 % (22-44); MD SCAN; MEAN CORPUSCULAR HGB CONC 34.4 g/dL (32.4-35.8); MEAN CORPUSCULAR VOLUME 95.9 fL (80-100); MEAN PLATELET VOLUME 8.7 fL (7.4-10.4); MONOCYTES # (AUTO) 0.26 x10^3/uL (0.2-0.8); MONOCYTES % (AUTO) 10 % (2-9); NEUTROPHILS # (AUTO) 1.21 x10^3/uL (1.8-6.8); NEUTROPHILS % (AUTO) 44 % (42-75); PLATELET COUNT 74 x10^3/uL (130-400); RED BLOOD COUNT 3.82 x10^6/uL (3.82-5.3)
[2018-09-04] MEDS ORDERED: MAALOX/HYOSCYAMINE/LIDOCAINE 45 ML BTL ONE (11:53)
[2018-09-04] MEDS ORDERED: MAALOX/HYOSCYAMINE/LIDOCAINE 45 ML BTL PO ONE (12:00)
[2018-09-04 13:08] VITALS: BP 116/79
--- NOTE | 2018-09-04 13:09 | NUR ---
PT IS RESTING IN BED, LOOKING AT HER PHONE, RESPIRATONS EQUAL AND NON LABORED. NAD. PT IS CONNECTED TO THE MONITOR. CALL LIGHT WITHIN REACH.
--- NOTE | 2018-09-04 14:18 | NUR ---
Patient given discharge instructions and they have confirmed that they understand the instructions. Patient ambulatory with steady gait.
== END 2018-09-04 14:19 | disposition home or self-care (01) ==
LOC: ED 12:03
DX: K92.1 Melena (principal); K29.01 Acute gastritis with bleeding; F10.20 Alcohol dependence, uncomplicated; I25.2 Old myocardial infarction; J44.9 Chronic obstructive pulmonary disease, unspecified; E11.9 Type 2 diabetes mellitus without complications; I10 Essential (primary) hypertension; G43.909 Migraine, unspecified, not intractable, without status migrainosus
CPT/HCPCS: 36415; 80053; 80307; 82140; 83690; 85025; 85610; 86850; 86900; 96374; 96375; 99283; C9113; J2405; J7030

== ENCOUNTER 2018-10-01 11:40 | Emergency (ER) | payer MEDICAID ==
[~2018-10-01] VITALS: Ht 160 cm; Wt 81.4 kg
[2018-10-01] MEDS ORDERED: MAALOX/HYOSCYAMINE/LIDOCAINE 45 ML BTL ONE (12:04)
[2018-10-01] MEDS ORDERED: PROMETHAZINE 25 MG/ML, 1ML ONE (12:04)
[2018-10-01] MEDS ORDERED: FAMOTIDINE 20 MG TABLET ONE (12:04)
--- NOTE | 2018-10-01 12:09 | NUR ---
yellow slip sent to rx for carafate med.
[2018-10-01 12:22] LABS: MEAN CORPUSCULAR HGB CONC 33.3 g/dL (32.4-35.8); MEAN CORPUSCULAR VOLUME 95.9 fL (80-100); MEAN PLATELET VOLUME 9.4 fL (7.4-10.4); PLATELET COUNT 77 x10^3/uL (130-400); RED CELL DISTRIBUTION WIDTH 15.8 % (9.6-15.2)
[2018-10-01 12:25] LABS: INTERNATIONAL NORMALIZED RATIO 1.15 (0.93-1.1)
[2018-10-01 12:27] LABS: ALBUMIN 2.7 g/dL (3.4-5.0); ANION GAP 7 mmol/L (5-15); CALCIUM 8.6 mg/dL (8.5-10.1); CHLORIDE 116 mmol/L (98-107)
[2018-10-01 12:31] LABS: ALANINE AMINOTRANSFERASE 33 U/L (12-78); ALKALINE PHOSPHATASE 178 U/L (45-117); BILIRUBIN,TOTAL 0.9 mg/dL (0.2-1.0); CREATININE 0.48 mg/dL (0.55-1.02); TOTAL PROTEIN 6.6 g/dL (6.4-8.2)
[2018-10-01 12:37] LABS: BASOPHILS # (AUTO) 0.01 x10^3/uL (0-0.1); BASOPHILS % (AUTO) 0 % (0-1); EOSINOPHILS # (AUTO) 0.13 x10^3/uL (0-0.4); EOSINOPHILS % (AUTO) 5 % (1-7); LYMPHOCYTES % (AUTO) 30 % (22-44); MD SCAN; MONOCYTES % (AUTO) 11 % (2-9); NEUTROPHILS # (AUTO) 1.47 x10^3/uL (1.8-6.8); NEUTROPHILS % (AUTO) 54 % (42-75)
--- NOTE | 2018-10-01 12:43 | NUR ---
PT CHART REVIEWED AND PLACED FOR RECHECK.
[2018-10-01] MEDS ORDERED: FAMOTIDINE 20 MG TABLET PO ONE (13:00)
[2018-10-01] MEDS ORDERED: MAALOX/HYOSCYAMINE/LIDOCAINE 45 ML BTL PO ONE (13:00)
[2018-10-01] MEDS ORDERED: PROMETHAZINE 25 MG/ML, 1ML IM ONE (13:00)
[2018-10-01] MEDS ORDERED: SUCRALFATE 1 GM TABLET PO ONE (13:00)
[2018-10-01 13:12] VITALS: BP 110/78
== END 2018-10-01 13:14 | disposition home or self-care (01) ==
LOC: ED 13:00
DX: K92.0 Hematemesis (principal); J44.9 Chronic obstructive pulmonary disease, unspecified; I10 Essential (primary) hypertension
CPT/HCPCS: 36415; 80053; 83690; 85025; 85610; 85730; 96372; 99284; J2550

== ENCOUNTER 2019-01-02 11:53 | Emergency (ER) | payer MEDICAID ==
[~2019-01-02] VITALS: Ht 160 cm; Wt 82.7 kg
[2019-01-02] MEDS ORDERED: MAALOX/HYOSCYAMINE/LIDOCAINE 45 ML BTL ONE (12:12)
[2019-01-02] MEDS ORDERED: FAMOTIDINE 20 MG/2 ML ONE (12:12)
[2019-01-02] MEDS ORDERED: MORPHINE SULFATE 4 MG/ML, 1ML ONE (12:12)
[2019-01-02] MEDS ORDERED: ONDANSETRON 2MG/ML, 2ML ONE (12:12)
[2019-01-02] MEDS ORDERED: ONDANSETRON 2MG/ML, 2ML IVPush ONE (12:30)
[2019-01-02] MEDS ORDERED: FAMOTIDINE 20 MG/2 ML IVP ONE (12:30)
[2019-01-02] MEDS ORDERED: MAALOX/HYOSCYAMINE/LIDOCAINE 45 ML BTL PO ONE (12:30)
[2019-01-02] MEDS ORDERED: SODIUM CHLORIDE FLUSH 10ML SYR IVF ONE (12:30)
[2019-01-02] MEDS ORDERED: MORPHINE SULFATE 4 MG/ML, 1ML IVPush PRN (12:30)
[2019-01-02 12:48] LABS: INTERNATIONAL NORMALIZED RATIO 1.23 (0.93-1.1); PROTHROMBIN TIME 12.8 Seconds (9.6-11.5)
[2019-01-02 12:51] LABS: ANION GAP 10 mmol/L (5-15); CALCIUM 8.8 mg/dL (8.5-10.1); CHLORIDE 115 mmol/L (98-107)
[2019-01-02 12:58] LABS: ALANINE AMINOTRANSFERASE 30 U/L (12-78); ALKALINE PHOSPHATASE 152 U/L (45-117); BILIRUBIN,TOTAL 1.8 mg/dL (0.2-1.0); CREATININE 0.52 mg/dL (0.55-1.02); TOTAL PROTEIN 6.9 g/dL (6.4-8.2)
--- NOTE | 2019-01-02 13:01 | NUR ---
pt resting in [facility] on monitor, awaiting lab results. call light within reach
[2019-01-02 13:08] LABS: MEAN CORPUSCULAR HEMOGLOBIN 31.7 pg (27.0-34.8); MEAN CORPUSCULAR HGB CONC 33.2 g/dL (32.4-35.8); MEAN CORPUSCULAR VOLUME 95.6 fL (80-100); PLATELET COUNT 87 x10^3/uL (130-400); RED BLOOD COUNT 4.32 x10^6/uL (3.82-5.3); RED CELL DISTRIBUTION WIDTH 16.4 % (9.6-15.2)
[2019-01-02 13:09] LABS: MD YES
[2019-01-02 13:17] LABS: BAND#(MANUAL) 0.09 x10^3/uL; BANDS%(MANUAL) 3 % (0-7); EOS#(MANUAL) 0.09 x10^3/uL (0.0-0.4); EOS% (MANUAL) 3 % (1-7); LYMPH#(MANUAL) 0.96 x10^3/uL (1-3.4); LYMPHS% (MANUAL) 33 % (22-44); MONOS#(MANUAL) 0.26 x10^3/uL (0.3-2.7); MONOS% (MANUAL) 9 % (2-9); SEG#(MANUAL) 1.51 x10^3/uL (1.8-6.8); SEGS% (MANUAL) 52 % (42-75)
[2019-01-02 13:18] LABS: <PLATELET ESTIMATE> DECREASED; <PLT MORPHOLOGY> NORMAL PLT MORPH; ANISOCYTOSIS 1+
[2019-01-02 13:35] LABS: MICROSCOPIC NOT IND
[2019-01-02 13:40] LABS: CULTURE INDICATED? NO
[2019-01-02 13:55] VITALS: BP 150/91
--- NOTE | 2019-01-02 13:56 | NUR ---
pt resting in [facility] on monitor, vss. awaiting recheck. no needs at this time
== END 2019-01-02 14:21 | disposition home or self-care (01) ==
LOC: ED 14:15
DX: K70.30 Alcoholic cirrhosis of liver without ascites (principal); F10.229 Alcohol dependence with intoxication, unspecified; Y90.9 Presence of alcohol in blood, level not specified
CPT/HCPCS: 36415; 80053; 80307; 81003; 83690; 85025; 85610; 85730; 96374; 96375; 99283; J2270; J2405; J3490

== ENCOUNTER 2019-02-12 12:55 | Emergency (ER) | payer MEDICAID ==
[~2019-02-12] VITALS: Ht 160 cm; Wt 77.0 kg
[2019-02-12 16:35] VITALS: BP 118/71
== END 2019-02-12 16:43 | disposition home or self-care (01) ==
LOC: ED 13:37
DX: K70.30 Alcoholic cirrhosis of liver without ascites (principal); I10 Essential (primary) hypertension; E11.9 Type 2 diabetes mellitus without complications; J44.9 Chronic obstructive pulmonary disease, unspecified; F41.1 Generalized anxiety disorder; F32.9 Major depressive disorder, single episode, unspecified; I25.2 Old myocardial infarction; Z90.49 Acquired absence of other specified parts of digestive tract
CPT/HCPCS: 36415; 76700; 80053; 80307; 83690; 85025; 85610; 96374; 96375; 96376; 99284; J1170; J2405; Q0162

== ENCOUNTER 2019-05-09 16:46 | Emergency (ER) | payer MEDICAID ==
[~2019-05-09] VITALS: Ht 160 cm; Wt 76.3 kg
[~2019-05-09 16:46] MED LIST changes: +FAMO-79 PO; +LACT10SO24 PO; -LACT10SO5 PO; +Propranolol
[2019-05-09] MEDS ORDERED: ALBUTEROL 0.5%, 20ML ONE (16:57)
--- NOTE | 2019-05-09 16:57 | NUR ---
[facility]. C/O SOB STARTING THIS AM AND KEPT PROGRESSING THROUGHOUT THE DAY. PRODUCTIVE COUGH WITH GREEN SPUTUM X4 DAYS. HOME BREATHING TREATMENT W/O RELIEF. NO MEDS GIVEN BY [facility]. PT INCREASED WORK OF BREATHING. CONNECTED TO MONITORING. CALL LIGHT IN REACH. MD AT BEDSIDE. AWAITING ORDERS AT THIS TIME. Addendum: 05/09/19 at 1659 by [email or web address] HX PNA
[2019-05-09] MEDS ORDERED: methylPREDNISolone SOD SUCC 125 MG/2 ML IV ONE (17:00)
[2019-05-09] MEDS ORDERED: SODIUM CHLORIDE FLUSH 10ML SYR IVF ONE (17:00)
[2019-05-09 17:27] LABS: ALANINE AMINOTRANSFERASE 38 U/L (12-78); ANION GAP 9 mmol/L (5-15); CALCIUM 7.9 mg/dL (8.5-10.1); CHLORIDE 113 mmol/L (98-107); CREATININE 0.54 mg/dL (0.55-1.02)
[2019-05-09] MEDS ORDERED: methylPREDNISolone SOD SUCC 125 MG/2 ML ONE (17:27)
[2019-05-09] MEDS ORDERED: ALBUTEROL 0.5%, 20ML NPPBCONT ONE (17:30)
[2019-05-09 17:31] LABS: ALKALINE PHOSPHATASE 187 U/L (45-117); BILIRUBIN,TOTAL 1.5 mg/dL (0.2-1.0); TOTAL PROTEIN 6.7 g/dL (6.4-8.2); TROPONIN I < 0.015 ng/mL (0.000-0.045)
[2019-05-09 17:37] LABS: MEAN CORPUSCULAR HEMOGLOBIN 31.7 pg (27.0-34.8); MEAN CORPUSCULAR HGB CONC 33.3 g/dL (32.4-35.8); MEAN CORPUSCULAR VOLUME 95.2 fL (80-100); RED BLOOD COUNT 3.77 x10^6/uL (3.82-5.3); RED CELL DISTRIBUTION WIDTH 16.2 % (9.6-15.2)
--- NOTE | 2019-05-09 17:51 | NUR ---
IV START BY US. MEDS ADMINISTERED PER SEP. PT SEEMS MORE CALM AND BREATHING A "LITTLE BETTER". PT REQUESTING PAIN MEDS FOR MUSCULAR PAIN FROM COUGHING SO MUCH. NOTIFIED. AWAITING ORDERS.
[2019-05-09 17:55] LABS: MEAN PLATELET VOLUME 9.9 fL (7.4-10.4); PLATELET COUNT 69 x10^3/uL (130-400)
[2019-05-09 17:59] LABS: MD YES
[2019-05-09] MEDS ORDERED: KETOROLAC 30 MG/1 ML ONE (17:59)
[2019-05-09 18:00] LABS: ANISOCYTOSIS 1+; BAND#(MANUAL) 0.16 x10^3/uL; BANDS%(MANUAL) 5 % (0-7); LYMPH#(MANUAL) 0.74 x10^3/uL (1-3.4); LYMPHS% (MANUAL) 24 % (22-44); MONOS#(MANUAL) 0.31 x10^3/uL (0.3-2.7); MONOS% (MANUAL) 10 % (2-9); OVALOCYTES 1+; POLYCHROMASIA 1+; SEG#(MANUAL) 1.89 x10^3/uL (1.8-6.8); SEGS% (MANUAL) 61 % (42-75)
[2019-05-09 18:01] LABS: <PLATELET ESTIMATE> DECREASED; <PLT MORPHOLOGY> NORMAL PLT MORPH
[2019-05-09] MEDS ORDERED: KETOROLAC 30 MG/1 ML IVPush ONE (18:30)
--- NOTE | 2019-05-09 18:47 | NUR ---
PT AMBULATED TO RESTROOM WITH STEADY GAIT. UA COLLECTED AND SENT TO LAB.
--- NOTE | 2019-05-09 19:10 | NUR ---
REPORT OF PT FROM CHELA BYRD AND ASSUMING CARE OF PT AT THIS TIME.
[2019-05-09 19:12] LABS: MICROSCOPIC INDICATED
[2019-05-09 19:27] LABS: CULTURE INDICATED? YES
[2019-05-09 20:08] VITALS: BP 125/75
--- NOTE | 2019-05-09 20:08 | NUR ---
PT D/C WITH D/C SUMMARY AND SCRIPTS. ALL QUESTIONS ANSWERED. PT AMBULATES TO REGISTRATION DESK WITH STEADY GAIT FOR D/C HOME. PT VERBALIZES THAT SHE IS TAKING THE BUS HOME THIS EVENING, AND HAS HOME PORTABLE OXYGEN WITH HER UPON D/C. PT DENIES ANY OTHER NEEDS PERTAINING TO THIS VISIT.
== END 2019-05-09 20:11 | disposition home or self-care (01) ==
LOC: ED 19:16
DX: J44.1 Chronic obstructive pulmonary disease with (acute) exacerbation (principal); I10 Essential (primary) hypertension; E11.9 Type 2 diabetes mellitus without complications
CPT/HCPCS: 36415; 71045; 80053; 81001; 83880; 84484; 85025; 87086; 93005; 94644; 96374; 96375; 99284; J1885; J2930; J7611

== ENCOUNTER 2019-05-19 13:12 | Emergency (ER) | payer MEDICAID ==
[~2019-05-19] VITALS: Ht 162.6 cm; Wt 85.0 kg
--- NOTE | 2019-05-19 13:32 | NUR ---
49 Y/O FEMALE BIB AMBULANCE WITH C/O ETOH. PER REPORT PT CALLED EMS BECAUSE [place] THE [place]ARK AFTER DRINKING 1/3 PINT OF VODKA PASSED OUT. PT IS A&OX4. PT STATES "I FUCKED UP. 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 IT WAS AT HOME I DIDN'T TAKE IT TO THE PARK." EDMD BEDSIDE. NO ACUTE DISTRESS NOTED. NO C/O PAIN, N/V/D, TRAUMA, SYNCOPE, CP, SOB.
--- NOTE | 2019-05-19 14:43 | NUR ---
PT SLEEPING ONGURNEY. NADN. WILL CONTINUE TO MONITOR. RESPS EQUAL AND UNLABORED. PT STATED EARLIER SHE WEARS HOME OXYGEN AT 3LPM
--- NOTE | 2019-05-19 15:49 | NUR ---
PT SITTING ON EDGE OF BED. PT AMBULATORY WITH STEADY GAIT TO BATHROOM.
[2019-05-19 15:51] VITALS: BP 122/77
--- NOTE | 2019-05-19 16:20 | NUR ---
Patient/Caregiver given discharge instructions and they have confirmed that they understand the instructions. Patient ambulatory with steady gait. PT LEFT WITH ALL BELONGINGS. PT GIVEN BUS PASS.
== END 2019-05-19 16:23 | disposition home or self-care (01) ==
LOC: ED 16:16
DX: F10.229 Alcohol dependence with intoxication, unspecified (principal); I10 Essential (primary) hypertension; Y90.0 Blood alcohol level of less than 20 mg/100 ml
CPT/HCPCS: 99283

== ENCOUNTER 2019-06-10 21:37 | Inpatient (IN) | payer MEDICAID ==
[~2019-06-10] VITALS: Ht 160 cm; Wt 81.0 kg
[2019-06-10 22:48] LABS: ALBUMIN 3.4 g/dL (3.4-5.0); ANION GAP 13 mmol/L (5-15); CALCIUM 9.1 mg/dL (8.5-10.1); CHLORIDE 104 mmol/L (98-107); CREATININE 0.71 mg/dL (0.55-1.02)
[2019-06-10 22:52] LABS: TROPONIN I < 0.015 ng/mL (0.000-0.045)
[2019-06-10 23:04] LABS: MD YES; MEAN CORPUSCULAR HEMOGLOBIN 31.3 pg (27.0-34.8); MEAN CORPUSCULAR HGB CONC 32.8 g/dL (32.4-35.8); MEAN CORPUSCULAR VOLUME 95.4 fL (80-100); MEAN PLATELET VOLUME 9.8 fL (7.4-10.4); PLATELET COUNT 68 x10^3/uL (130-400); RED BLOOD COUNT 4.17 x10^6/uL (3.82-5.3); RED CELL DISTRIBUTION WIDTH 15.9 % (9.6-15.2)
[2019-06-10 23:06] LABS: ANISOCYTOSIS 1+; BANDS%(MANUAL) 1 % (0-7); EOS% (MANUAL) 2 % (1-7); LYMPHS% (MANUAL) 13 % (22-44); MONOS% (MANUAL) 3 % (2-9); SEGS% (MANUAL) 81 % (42-75)
[2019-06-10 23:07] LABS: <PLATELET ESTIMATE> DECREASED; <PLT MORPHOLOGY> NORMAL PLT MORPH; OVALOCYTES 1+; POLYCHROMASIA 1+
[2019-06-10 23:09] LABS: BAND#(MANUAL) 0.02 x10^3/uL
[2019-06-10 23:15] LABS: LYMPH#(MANUAL) 0.31 x10^3/uL (1-3.4); MONOS#(MANUAL) 0.07 x10^3/uL (0.3-2.7)
[2019-06-10 23:16] LABS: EOS#(MANUAL) 0.05 x10^3/uL (0.0-0.4)
[2019-06-11] MEDS ORDERED: AZITHROMYCIN 500 MG in SODIUM CHLORIDE 0.9% 250 ML IV ONE ×2 (00:30→04:00)
[2019-06-11] MEDS ORDERED: CEFTRIAXONE PMX 1GM/50ML 50 ML IV ONE (00:30)
[2019-06-11] MEDS ORDERED: POTASSIUM CHLORIDE 20 MEQ TAB.ER.PRT PO ONE (01:00)
[2019-06-11] MEDS ORDERED: CEFTRIAXONE PMX 1GM/50ML 50 ML ONE (01:18)
[2019-06-11] MEDS ORDERED: POTASSIUM CHLORIDE 20 MEQ TAB.ER.PRT ONE (01:33)
[2019-06-11] MEDS ORDERED: ALBU6.7H8 INH (01:59)
[2019-06-11 02:00] VITALS: BP 107/74
[2019-06-11 02:01] VITALS: BP 107/74
[2019-06-11] MEDS ORDERED: hydrALAzine 20 MG/ML, 1ML IVPush PRN (04:30)
[2019-06-11] MEDS ORDERED: ACETAMINOPHEN 325 MG TABLET PO PRN (04:30)
[2019-06-11] MEDS ORDERED: PROMETHAZINE 25 MG/ML, 1ML IM PRN (04:30)
[2019-06-11] MEDS ORDERED: BISACODYL 10 MG SUPP PR PRN (04:30)
[2019-06-11] MEDS ORDERED: POLYETHYLENE GLYCOL 17 GM PACKET PO PRN (04:30)
[2019-06-11] MEDS ORDERED: SODIUM CHLORIDE 0.9% 1,000 ML IV SCH (04:30)
[2019-06-11] MEDS ORDERED: DOCUSATE 100 MG CAPSULE PO PRN (04:30)
[2019-06-11] MEDS ORDERED: ONDANSETRON ODT 4 MG PO PRN (04:30)
[2019-06-11] MEDS ORDERED: ONDANSETRON 2MG/ML, 2ML IVPush PRN (04:30)
[2019-06-11] MEDS ORDERED: morphine SULFATE 10 MG/ML, 1ML IVPush PRN (04:30)
[2019-06-11] MEDS: LORazepam 2 MG/ML, 1ML IVPush PRN (04:59)
[2019-06-11] MEDS ORDERED: LORazepam 0.5MG TABLET PO PRN (05:00)
[2019-06-11] MEDS ORDERED: POTASSIUM CHLORIDE 40 MEQ in SODIUM CHLORIDE 0.9% 500 ML IV ONE (05:00)
[2019-06-11] MEDS ORDERED: LORazepam 1MG TABLET PO PRN ×3 (05:00)
[2019-06-11] MEDS ORDERED: LORazepam 2 MG/ML, 1ML IV PRN ×4 (05:00)
[2019-06-11] MEDS: NICOTINE 7 MG/24 HR PATCH.TD24 TD SCH (07:00)
[2019-06-11 07:57] LABS: INTERNATIONAL NORMALIZED RATIO 1.34 (0.93-1.1); PROTHROMBIN TIME 13.9 Seconds (9.6-11.5)
[2019-06-11 08:00] VITALS: BP 115/69
[2019-06-11 08:09] LABS: ALANINE AMINOTRANSFERASE 36 U/L (12-78); ALBUMIN 2.7 g/dL (3.4-5.0); ANION GAP 10 mmol/L (5-15); CALCIUM 8.1 mg/dL (8.5-10.1); CHLORIDE 108 mmol/L (98-107)
[2019-06-11 08:12] LABS: ALKALINE PHOSPHATASE 146 U/L (45-117); BILIRUBIN,TOTAL 2.7 mg/dL (0.2-1.0); HEMOGLOBIN A1C 4.4 % (4.2-6.3)
[2019-06-11 08:49] LABS: MEAN PLATELET VOLUME 8.8 fL (7.4-10.4); PLATELET COUNT 50 x10^3/uL (130-400)
[2019-06-11 08:50] LABS: MEAN CORPUSCULAR HEMOGLOBIN 31.9 pg (27.0-34.8); MEAN CORPUSCULAR HGB CONC 33.6 g/dL (32.4-35.8); MEAN CORPUSCULAR VOLUME 95.1 fL (80-100); RED BLOOD COUNT 3.51 x10^6/uL (3.82-5.3); RED CELL DISTRIBUTION WIDTH 15.8 % (9.6-15.2)
[2019-06-11] MEDS: HEPARIN 5,000 UNITS/ML, 1ML SQ SCH ×2 (08:53→17:17)
[2019-06-11] MEDS: LORazepam 2 MG/ML, 1ML IV PRN ×2 (08:53→14:48)
[2019-06-11 08:55] LABS: BASOPHILS # (AUTO) 0.02 x10^3/uL (0-0.1); BASOPHILS % (AUTO) 1 % (0-1); EOSINOPHILS # (AUTO) 0.05 x10^3/uL (0-0.4); EOSINOPHILS % (AUTO) 2 % (1-7); LYMPHOCYTES # (AUTO) 0.49 x10^3/uL (1-3.4); LYMPHOCYTES % (AUTO) 23 % (22-44); MD SCAN; MONOCYTES # (AUTO) 0.34 x10^3/uL (0.2-0.8); MONOCYTES % (AUTO) 16 % (2-9); NEUTROPHILS # (AUTO) 1.25 x10^3/uL (1.8-6.8); NEUTROPHILS % (AUTO) 58 % (42-75)
[2019-06-11 09:21] LABS: FREE T4 (FREE THYROXINE) 1.54 ng/dL (0.76-1.46)
[2019-06-11] MEDS: LACTULOSE 20 GM/30 ML UDC PO SCH ×2 (09:30→21:00)
[2019-06-11 10:19] LABS: RAPID INFLUENZA A Negative (Negative); RAPID INFLUENZA B Negative (Negative)
[2019-06-11 12:21] LABS: CLOSTRIDIUM DIFFICILE ANTIGEN NEGATIVE; CLOSTRIDIUM DIFFICILE TOXIN NEGATIVE (Negative)
[2019-06-11 13:23] VITALS: BP 116/69
[2019-06-11] MEDS ORDERED: OMNIPAQUE 350 MG/ML, 100ML BOTTLE ONE (15:06)
[2019-06-11 19:48] VITALS: BP 110/73
[2019-06-11] MEDS ORDERED: CEFTRIAXONE PMX 2GM/50ML 50 ML IV SCH (20:00)
[2019-06-11] MEDS: ALBUTEROL SULFATE 2.5 MG/3 ML NPPB PRN (20:54)
[2019-06-11] MEDS: AZITHROMYCIN 500 MG in SODIUM CHLORIDE 0.9% 250 ML IV SCH (21:20)
[2019-06-11] MEDS: OXYcodone IR 5MG TABLET PO PRN (22:57)
[2019-06-11 23:16] LABS: MICROSCOPIC AUTO
[2019-06-11 23:25] LABS: CULTURE INDICATED? NO
[2019-06-11 23:31] LABS: AMPHETAMINE SCREEN, URINE Positive (Negative); BARBITURATE SCREEN, URINE Negative (Negative); BENZODIAZEPINE SCREEN, URINE Positive (Negative); CANNABINOID SCREEN, URINE Negative (Negative); COCAINE SCREEN, URINE Negative (Negative); METHADONE SCREEN, URINE Negative (Negative); OPIATE SCREEN, URINE Negative (Negative)
[2019-06-12] VITALS: BP 107/71
[2019-06-12] MEDS: HEPARIN 5,000 UNITS/ML, 1ML SQ SCH (01:22)
[2019-06-12] MEDS: OXYcodone IR 5MG TABLET PO PRN ×3 (04:21→20:02)
[2019-06-12 04:58] VITALS: BP 113/64
[2019-06-12 06:29] LABS: MEAN CORPUSCULAR HEMOGLOBIN 32.2 pg (27.0-34.8); MEAN CORPUSCULAR VOLUME 97.7 fL (80-100); RED BLOOD COUNT 3.35 x10^6/uL (3.82-5.3); RED CELL DISTRIBUTION WIDTH 16.2 % (9.6-15.2)
[2019-06-12 06:44] LABS: PLATELET COUNT 47 x10^3/uL (130-400)
[2019-06-12 06:46] LABS: MD YES
[2019-06-12 06:49] LABS: ALBUMIN 2.6 g/dL (3.4-5.0); ANION GAP 7 mmol/L (5-15); CALCIUM 8.3 mg/dL (8.5-10.1); CHLORIDE 111 mmol/L (98-107)
[2019-06-12 06:50] LABS: EOS% (MANUAL) 6 % (1-7)
[2019-06-12 06:53] LABS: ALANINE AMINOTRANSFERASE 40 U/L (12-78); ALKALINE PHOSPHATASE 148 U/L (45-117); BILIRUBIN,TOTAL 2.1 mg/dL (0.2-1.0); CHOL/HDL RATIO 1.9; CHOLESTEROL, TOTAL 140 mg/dL (140-239); CREATININE 0.53 mg/dL (0.55-1.02); HDL CHOL % 52 % (28-40); HDL CHOLESTEROL (DIRECT) 73 mg/dL (40-60); LDL CHOLESTEROL,CALCULATED 57 mg/dL (54-169); LDL/HDL RATIO 0.8 (0.5-3.0); TOTAL PROTEIN 5.7 g/dL (6.4-8.2); TRIGLYCERIDES 49 mg/dL (50-200); VLDL CHOLESTEROL 10 mg/dL (0-25)
[2019-06-12 06:54] LABS: ANISOCYTOSIS 1+; LYMPH#(MANUAL) 0.53 x10^3/uL (1-3.4); LYMPHS% (MANUAL) 33 % (22-44); MONOS#(MANUAL) 0.19 x10^3/uL (0.3-2.7); MONOS% (MANUAL) 12 % (2-9); OVALOCYTES 1+; POLYCHROMASIA 1+; SEG#(MANUAL) 0.78 x10^3/uL (1.8-6.8); SEGS% (MANUAL) 49 % (42-75)
[2019-06-12 06:55] LABS: <PLATELET ESTIMATE> DECREASED; <PLT MORPHOLOGY> NORMAL PLT MORPH
[2019-06-12] MEDS: NICOTINE 7 MG/24 HR PATCH.TD24 TD SCH (07:00)
[2019-06-12] MEDS: AMPICILLIN/SULBACTAM 3 GM in SODIUM CHLORIDE 0.9% 100 ML IV SCH ×3 (08:32→19:45)
[2019-06-12] MEDS: LACTULOSE 20 GM/30 ML UDC PO SCH ×2 (08:56→20:02)
[2019-06-12 14:20] VITALS: BP 110/64
[2019-06-12] MEDS: ALBUTEROL SULFATE 2.5 MG/3 ML NPPB PRN (17:45)
[2019-06-12 19:50] VITALS: BP 112/75
[2019-06-12] MEDS: AZITHROMYCIN 500 MG in SODIUM CHLORIDE 0.9% 250 ML IV SCH (20:33)
[2019-06-12] MEDS: LORazepam 1MG TABLET PO PRN (22:43)
[2019-06-13 01:08] VITALS: BP 130/88
[2019-06-13] MEDS: AMPICILLIN/SULBACTAM 3 GM in SODIUM CHLORIDE 0.9% 100 ML IV SCH ×4 (01:22→21:11)
[2019-06-13 05:51] LABS: MEAN CORPUSCULAR HEMOGLOBIN 32.3 pg (27.0-34.8); MEAN CORPUSCULAR HGB CONC 32.9 g/dL (32.4-35.8); MEAN CORPUSCULAR VOLUME 98.1 fL (80-100); RED BLOOD COUNT 3.51 x10^6/uL (3.82-5.3); RED CELL DISTRIBUTION WIDTH 16.3 % (9.6-15.2)
[2019-06-13 06:05] LABS: ALBUMIN 2.8 g/dL (3.4-5.0); ANION GAP 5 mmol/L (5-15); CALCIUM 8.6 mg/dL (8.5-10.1); CHLORIDE 107 mmol/L (98-107)
[2019-06-13 06:10] LABS: ALANINE AMINOTRANSFERASE 51 U/L (12-78); ALKALINE PHOSPHATASE 167 U/L (45-117); BILIRUBIN,TOTAL 2.4 mg/dL (0.2-1.0); CREATININE 0.55 mg/dL (0.55-1.02); TOTAL PROTEIN 6.2 g/dL (6.4-8.2)
[2019-06-13 06:33] LABS: BASOPHILS # (AUTO) 0.03 x10^3/uL (0-0.1); BASOPHILS % (AUTO) 2 % (0-1); EOSINOPHILS # (AUTO) 0.05 x10^3/uL (0-0.4); EOSINOPHILS % (AUTO) 3 % (1-7); LYMPHOCYTES # (AUTO) 0.51 x10^3/uL (1-3.4); LYMPHOCYTES % (AUTO) 32 % (22-44); MD SCAN; MEAN PLATELET VOLUME 8.7 fL (7.4-10.4); MONOCYTES # (AUTO) 0.29 x10^3/uL (0.2-0.8); MONOCYTES % (AUTO) 18 % (2-9); NEUTROPHILS # (AUTO) 0.73 x10^3/uL (1.8-6.8); NEUTROPHILS % (AUTO) 45 % (42-75); PLATELET COUNT 50 x10^3/uL (130-400)
[2019-06-13] MEDS: NICOTINE 7 MG/24 HR PATCH.TD24 TD SCH (07:00)
[2019-06-13 07:42] VITALS: BP 123/80
[2019-06-13] MEDS: LACTULOSE 20 GM/30 ML UDC PO SCH ×2 (09:00→20:19)
[2019-06-13] MEDS: OXYcodone IR 5MG TABLET PO PRN ×2 (10:31→19:59)
[2019-06-13 12:53] VITALS: BP 126/72
[2019-06-13 19:38] VITALS: BP 103/67
[2019-06-13] MEDS: AZITHROMYCIN 500 MG in SODIUM CHLORIDE 0.9% 250 ML IV SCH (19:58)
[2019-06-14 01:14] VITALS: BP 108/73
[2019-06-14] MEDS: AMPICILLIN/SULBACTAM 3 GM in SODIUM CHLORIDE 0.9% 100 ML IV SCH ×4 (03:00→20:56)
[2019-06-14 06:10] LABS: ANION GAP 5 mmol/L (5-15); CALCIUM 7.7 mg/dL (8.5-10.1); CHLORIDE 112 mmol/L (98-107); CREATININE 0.48 mg/dL (0.55-1.02)
[2019-06-14] MEDS: LORazepam 1MG TABLET PO PRN (06:12)
[2019-06-14 06:30] LABS: MD YES; MEAN CORPUSCULAR HEMOGLOBIN 32.4 pg (27.0-34.8); MEAN CORPUSCULAR VOLUME 98.2 fL (80-100); MEAN PLATELET VOLUME 8.6 fL (7.4-10.4); RED BLOOD COUNT 3.22 x10^6/uL (3.82-5.3); RED CELL DISTRIBUTION WIDTH 16.5 % (9.6-15.2)
[2019-06-14 06:32] LABS: PLATELET COUNT 37 x10^3/uL (130-400)
[2019-06-14 06:36] LABS: EOS#(MANUAL) 0.03 x10^3/uL (0.0-0.4); EOS% (MANUAL) 2 % (1-7); LYMPH#(MANUAL) 0.36 x10^3/uL (1-3.4); LYMPHS% (MANUAL) 21 % (22-44); MONOS% (MANUAL) 12 % (2-9); SEG#(MANUAL) 1.11 x10^3/uL (1.8-6.8); SEGS% (MANUAL) 65 % (42-75)
[2019-06-14 06:37] LABS: <PLATELET ESTIMATE> DECREASED; <PLT MORPHOLOGY> NORMAL PLT MORPH; ANISOCYTOSIS 1+; OVALOCYTES 1+; POLYCHROMASIA 1+
[2019-06-14] MEDS: NICOTINE 7 MG/24 HR PATCH.TD24 TD SCH (07:00)
[2019-06-14] MEDS: LACTULOSE 20 GM/30 ML UDC PO SCH ×2 (07:42→19:43)
[2019-06-14 08:33] VITALS: BP 119/69
[2019-06-14] MEDS: OXYcodone IR 5MG TABLET PO PRN (14:16)
[2019-06-14] MEDS ORDERED: MAGNESIUM SULFATE PMX 2GM/50ML 50 ML IV ONE (15:00)
[2019-06-14 15:06] VITALS: BP 109/71
[2019-06-14] MEDS: SPIRONOLACTONE 25 MG TABLET PO SCH (18:46)
[2019-06-14] MEDS: FUROSEMIDE 20 MG TABLET PO SCH (18:46)
[2019-06-14 19:01] VITALS: BP 122/83
[2019-06-14] MEDS: LORazepam 2 MG/ML, 1ML IV PRN (19:24)
[2019-06-14] MEDS: AZITHROMYCIN 500 MG in SODIUM CHLORIDE 0.9% 250 ML IV SCH (19:42)
[2019-06-15 02:02] VITALS: BP 108/67
[2019-06-15] MEDS: AMPICILLIN/SULBACTAM 3 GM in SODIUM CHLORIDE 0.9% 100 ML IV SCH ×2 (03:06→10:10)
[2019-06-15 05:11] LABS: MD YES; MEAN CORPUSCULAR HEMOGLOBIN 32.2 pg (27.0-34.8); MEAN CORPUSCULAR VOLUME 97.5 fL (80-100); MEAN PLATELET VOLUME 8.8 fL (7.4-10.4); RED BLOOD COUNT 3.29 x10^6/uL (3.82-5.3); RED CELL DISTRIBUTION WIDTH 15.9 % (9.6-15.2)
[2019-06-15 05:13] LABS: ALBUMIN 2.2 g/dL (3.4-5.0); ANION GAP 5 mmol/L (5-15); CALCIUM 7.8 mg/dL (8.5-10.1); CHLORIDE 110 mmol/L (98-107)
[2019-06-15 05:17] LABS: ALANINE AMINOTRANSFERASE 43 U/L (12-78); ALKALINE PHOSPHATASE 123 U/L (45-117); CREATININE 0.54 mg/dL (0.55-1.02); TOTAL PROTEIN 5.2 g/dL (6.4-8.2)
[2019-06-15 05:58] LABS: PLATELET COUNT 44 x10^3/uL (130-400)
[2019-06-15 05:59] LABS: <PLATELET ESTIMATE> DECREASED; <PLT MORPHOLOGY> NORMAL PLT MORPH; ANISOCYTOSIS 1+; BAND#(MANUAL) 0.02 x10^3/uL; BANDS%(MANUAL) 1 % (0-7); EOS#(MANUAL) 0.02 x10^3/uL (0.0-0.4); EOS% (MANUAL) 1 % (1-7); LYMPH#(MANUAL) 0.59 x10^3/uL (1-3.4); LYMPHS% (MANUAL) 27 % (22-44); MONOS#(MANUAL) 0.26 x10^3/uL (0.3-2.7); MONOS% (MANUAL) 12 % (2-9); OVALOCYTES 1+; POLYCHROMASIA 1+; SEGS% (MANUAL) 59 % (42-75)
[2019-06-15] MEDS: OXYcodone IR 5MG TABLET PO PRN ×2 (06:46→12:13)
[2019-06-15] MEDS: LACTULOSE 20 GM/30 ML UDC PO SCH ×5 (06:46→20:01)
[2019-06-15] MEDS: NICOTINE 7 MG/24 HR PATCH.TD24 TD SCH (07:00)
[2019-06-15 07:52] VITALS: BP 115/65
[2019-06-15] MEDS: SPIRONOLACTONE 25 MG TABLET PO SCH (10:10)
[2019-06-15 13:55] VITALS: BP 129/86
[2019-06-15] MEDS: FUROSEMIDE 20 MG TABLET PO SCH (18:03)
[2019-06-15 19:20] VITALS: BP 119/74
[2019-06-15] MEDS: AZITHROMYCIN 500 MG in SODIUM CHLORIDE 0.9% 250 ML IV SCH (20:01)
[2019-06-15] MEDS: AMOXICILLIN/CLAV 875-125MG TABLET PO SCH (20:01)
[2019-06-15] MEDS: LORazepam 2 MG/ML, 1ML IVPush PRN (20:41)
[2019-06-16 00:21] VITALS: BP 110/67
[2019-06-16] MEDS: LACTULOSE 20 GM/30 ML UDC PO SCH ×4 (05:59→21:00)
[2019-06-16] MEDS: NICOTINE 7 MG/24 HR PATCH.TD24 TD SCH (07:00)
[2019-06-16 07:59] VITALS: BP 121/78
[2019-06-16 08:10] LABS: ALANINE AMINOTRANSFERASE 39 U/L (12-78); ALBUMIN 2.4 g/dL (3.4-5.0); ANION GAP 4 mmol/L (5-15); CALCIUM 8.1 mg/dL (8.5-10.1); CHLORIDE 110 mmol/L (98-107)
[2019-06-16 08:12] LABS: ALKALINE PHOSPHATASE 131 U/L (45-117); BILIRUBIN,TOTAL 1.5 mg/dL (0.2-1.0); TOTAL PROTEIN 5.8 g/dL (6.4-8.2)
[2019-06-16 08:44] LABS: MD YES; MEAN CORPUSCULAR HEMOGLOBIN 31.5 pg (27.0-34.8); MEAN CORPUSCULAR HGB CONC 32.6 g/dL (32.4-35.8); MEAN CORPUSCULAR VOLUME 96.5 fL (80-100); PLATELET COUNT 50 x10^3/uL (130-400); RED BLOOD COUNT 3.82 x10^6/uL (3.82-5.3); RED CELL DISTRIBUTION WIDTH 16.5 % (9.6-15.2)
[2019-06-16 09:08] LABS: BAND#(MANUAL) 0.02 x10^3/uL; BANDS%(MANUAL) 1 % (0-7); BASOS#(MANUAL) 0.02 x10^3/uL (0-0.1); BASOS% (MANUAL) 1 % (0-1); EOS#(MANUAL) 0.12 x10^3/uL (0.0-0.4); EOS% (MANUAL) 6 % (1-7); LYMPH#(MANUAL) 0.44 x10^3/uL (1-3.4); LYMPHS% (MANUAL) 22 % (22-44); MONOS#(MANUAL) 0.28 x10^3/uL (0.3-2.7); MONOS% (MANUAL) 14 % (2-9); SEG#(MANUAL) 1.12 x10^3/uL (1.8-6.8); SEGS% (MANUAL) 56 % (42-75)
[2019-06-16 09:09] LABS: <PLATELET ESTIMATE> DECREASED; <PLT MORPHOLOGY> NORMAL PLT MORPH; ANISOCYTOSIS 1+; OVALOCYTES 1+; POLYCHROMASIA 1+
[2019-06-16] MEDS ORDERED: MAGNESIUM SULFATE PMX 2GM/50ML 50 ML IV ONE (09:30)
[2019-06-16] MEDS: SPIRONOLACTONE 25 MG TABLET PO SCH (11:18)
[2019-06-16] MEDS: AMOXICILLIN/CLAV 875-125MG TABLET PO SCH ×2 (11:18→21:24)
[2019-06-16 13:30] VITALS: BP 105/69
[2019-06-16] MEDS: FUROSEMIDE 20 MG TABLET PO SCH (18:11)
[2019-06-16] MEDS: OXYcodone IR 5MG TABLET PO PRN (18:12)
[2019-06-16] MEDS: AZITHROMYCIN 500 MG in SODIUM CHLORIDE 0.9% 250 ML IV SCH (19:49)
[2019-06-16 21:51] VITALS: BP 112/72
[2019-06-17] MEDS: LORazepam 2 MG/ML, 1ML IV PRN (00:12)
[2019-06-17] MEDS: OXYcodone IR 5MG TABLET PO PRN ×2 (00:12→10:13)
[2019-06-17 02:01] VITALS: BP 97/60
[2019-06-17] MEDS: LACTULOSE 20 GM/30 ML UDC PO SCH ×2 (06:00→10:14)
[2019-06-17] MEDS: NICOTINE 7 MG/24 HR PATCH.TD24 TD SCH (06:16)
[2019-06-17 07:30] VITALS: BP 106/72
[2019-06-17] MEDS: AMOXICILLIN/CLAV 875-125MG TABLET PO SCH (10:11)
[2019-06-17] MEDS: SPIRONOLACTONE 25 MG TABLET PO SCH (10:14)
[2019-06-17 13:20] VITALS: BP 111/66
[2019-06-17] MEDS ORDERED: FURO20TA3 PO (14:25)
[2019-06-17] MEDS ORDERED: SPIR25TA PO (14:25)
== END 2019-06-17 15:43 | disposition home or self-care (01) | DRG 133 ==
LOC: ED 23:56 → EDIP 06-11 00:33 → 3N 06-11 01:45 → DCLOUNGE 06-17 15:18
PROVIDERS: ADMIT Internal Medicine; ATTEND Hospitalist
DX: J96.21 Acute and chronic respiratory failure with hypoxia (principal); I81 Portal vein thrombosis; Z99.11 Dependence on respirator [ventilator] status; J18.9 Pneumonia, unspecified organism; K70.30 Alcoholic cirrhosis of liver without ascites; D69.6 Thrombocytopenia, unspecified; J44.0 Chronic obstructive pulmonary disease with (acute) lower respiratory infection; K70.40 Alcoholic hepatic failure without coma; J44.1 Chronic obstructive pulmonary disease with (acute) exacerbation; E11.9 Type 2 diabetes mellitus without complications; E66.9 Obesity, unspecified; E87.6 Hypokalemia; F41.9 Anxiety disorder, unspecified; F10.10 Alcohol abuse, uncomplicated; G47.33 Obstructive sleep apnea (adult) (pediatric); I10 Essential (primary) hypertension; I25.2 Old myocardial infarction; Z68.31 Body mass index [BMI] 31.0-31.9, adult; Z59.0 Homelessness; Z99.81 Dependence on supplemental oxygen; G43.909 Migraine, unspecified, not intractable, without status migrainosus
CPT/HCPCS: 36415; 71045; 71275; 80048; 80053; 80061; 80307; 81001; 82040; 82140; 83036; 83735; 83880; 84100; 84439; 84443; 84484; 85025; 85610; 87040; 87070; 87205; 87324; 87400; 93005; 93306; 94640; 99285; G0378; J0295; J0456; J0696; J1644; J3480; J7613; Q9967; J2060; J2270; J3475; J7030; J7040; J7050

== ENCOUNTER 2019-07-31 02:26 | Emergency (ER) | payer MEDICAID ==
[~2019-07-31] VITALS: Ht 160 cm; Wt 70.0 kg
[~2019-07-31 02:26] MED LIST changes: +ALBU6.7H8 INH; +FURO20TA3 PO; +SPIR25TA PO
--- NOTE | 2019-07-31 02:42 | NUR ---
ABD PAIN X 24 HOURS, PT STATES CHIROSIS OF LIVER
--- NOTE | 2019-07-31 03:00 | NUR ---
PT UP TO BATHROOM WITH STEADY GAIT. UA PROVIDED
--- NOTE | 2019-07-31 03:04 | NUR ---
RIAZ RN: URINE SAMPLE PROVIDED BY PT, LABELED AND SENT TO LAB. BALE BREAKER OPERATOR AT BEDSIDE DRAWING LABS. ALL MONITORING EQUIPMENT ON PT. ALL VITALS STABLE AT THIS TIME. NSR ON THE MONITOR.
[2019-07-31 03:13] LABS: MICROSCOPIC NOT IND
[2019-07-31 03:15] LABS: CULTURE INDICATED? NO
--- NOTE | 2019-07-31 03:38 | NUR ---
lab to redraw CBC
[2019-07-31 03:44] LABS: ALANINE AMINOTRANSFERASE 55 U/L (12-78); ALBUMIN 3.1 g/dL (3.4-5.0); ANION GAP 10 mmol/L (5-15); CALCIUM 9.3 mg/dL (8.5-10.1); CHLORIDE 114 mmol/L (98-107); CREATININE 0.65 mg/dL (0.55-1.02)
[2019-07-31 03:48] LABS: ALKALINE PHOSPHATASE 189 U/L (45-117); BILIRUBIN,TOTAL 1.4 mg/dL (0.2-1.0); TOTAL PROTEIN 7.5 g/dL (6.4-8.2); TROPONIN I < 0.015 ng/mL (0.000-0.045)
--- NOTE | 2019-07-31 04:11 | NUR ---
PT RESTING ON GURNEY WITH EYES CLOSED. PT AWOKE WHEN THIS RN ENTERED ROOM. UPDATED PT ON POC.
[2019-07-31 04:19] LABS: MEAN CORPUSCULAR HEMOGLOBIN 31.1 pg (27.0-34.8); MEAN CORPUSCULAR HGB CONC 33.5 g/dL (32.4-35.8); MEAN CORPUSCULAR VOLUME 92.8 fL (80-100); MEAN PLATELET VOLUME 9.4 fL (7.4-10.4); PLATELET COUNT 92 x10^3/uL (130-400); RED BLOOD COUNT 4.21 x10^6/uL (3.82-5.3); RED CELL DISTRIBUTION WIDTH 16.5 % (9.6-15.2)
[2019-07-31 04:44] LABS: BASOPHILS # (AUTO) 0.01 x10^3/uL (0-0.1); BASOPHILS % (AUTO) 0 % (0-1); EOSINOPHILS % (AUTO) 4 % (1-7); LYMPHOCYTES # (AUTO) 1.14 x10^3/uL (1-3.4); LYMPHOCYTES % (AUTO) 39 % (22-44); MD SCAN; MONOCYTES # (AUTO) 0.38 x10^3/uL (0.2-0.8); MONOCYTES % (AUTO) 13 % (2-9); NEUTROPHILS # (AUTO) 1.33 x10^3/uL (1.8-6.8); NEUTROPHILS % (AUTO) 45 % (42-75)
[2019-07-31 05:14] VITALS: BP 105/45
[2019-07-31] MEDS ORDERED: DICYCLOMINE 20 MG TABLET ONE (05:22)
[2019-07-31] MEDS ORDERED: FAMOTIDINE 20 MG TABLET ONE (05:22)
[2019-07-31] MEDS ORDERED: DICYCLOMINE 20 MG TABLET PO ONE (05:30)
[2019-07-31] MEDS ORDERED: FAMOTIDINE 20 MG TABLET PO ONE (05:30)
--- NOTE | 2019-07-31 05:31 | NUR ---
PT REFUSING OXYGEN AT D/C. REPORTS "I ONLY USE IT WHEN I SLEEP ANYWAYS".
== END 2019-07-31 05:35 | disposition home or self-care (01) ==
LOC: ED 02:54
DX: K70.30 Alcoholic cirrhosis of liver without ascites (principal); K29.20 Alcoholic gastritis without bleeding; F10.120 Alcohol abuse with intoxication, uncomplicated; Z72.9 Problem related to lifestyle, unspecified; I10 Essential (primary) hypertension; E11.9 Type 2 diabetes mellitus without complications; J44.9 Chronic obstructive pulmonary disease, unspecified; I25.2 Old myocardial infarction; Z90.49 Acquired absence of other specified parts of digestive tract; Y90.9 Presence of alcohol in blood, level not specified
CPT/HCPCS: 36415; 80053; 80307; 81003; 83690; 84484; 85025; 86850; 86900; 99283

== ENCOUNTER 2019-08-22 13:54 | Emergency (ER) | payer MEDICAID ==
[~2019-08-22] VITALS: Ht 160 cm; Wt 74.5 kg
[~2019-08-22 13:54] MED LIST changes: +HYDR-2995 PO; -HYDR10TA4 PO
[2019-08-22 13:56] VITALS: BP 134/85
[2019-08-22 14:46] LABS: ALANINE AMINOTRANSFERASE 47 U/L (12-78); ALBUMIN 2.9 g/dL (3.4-5.0); ANION GAP 4 mmol/L (5-15); CALCIUM 9.1 mg/dL (8.5-10.1); CHLORIDE 113 mmol/L (98-107); CREATININE 0.57 mg/dL (0.55-1.02)
[2019-08-22 14:50] LABS: ALKALINE PHOSPHATASE 170 U/L (45-117); BILIRUBIN,TOTAL 1.4 mg/dL (0.2-1.0); TOTAL PROTEIN 7.1 g/dL (6.4-8.2)
[2019-08-22 15:00] LABS: MEAN CORPUSCULAR HEMOGLOBIN 30.9 pg (27.0-34.8); MEAN CORPUSCULAR HGB CONC 33.5 g/dL (32.4-35.8); MEAN CORPUSCULAR VOLUME 92.3 fL (80-100); MEAN PLATELET VOLUME 9.3 fL (7.4-10.4); PLATELET COUNT 81 x10^3/uL (130-400); RED BLOOD COUNT 4.64 x10^6/uL (3.82-5.3); RED CELL DISTRIBUTION WIDTH 17.1 % (9.6-15.2)
[2019-08-22 15:02] LABS: BASOPHILS # (AUTO) 0.01 x10^3/uL (0-0.1); BASOPHILS % (AUTO) 1 % (0-1); EOSINOPHILS # (AUTO) 0.12 x10^3/uL (0-0.4); EOSINOPHILS % (AUTO) 4 % (1-7); LYMPHOCYTES # (AUTO) 0.76 x10^3/uL (1-3.4); LYMPHOCYTES % (AUTO) 25 % (22-44); MD SCAN; MONOCYTES % (AUTO) 16 % (2-9); NEUTROPHILS # (AUTO) 1.65 x10^3/uL (1.8-6.8); NEUTROPHILS % (AUTO) 54 % (42-75)
--- NOTE | 2019-08-22 15:45 | NUR ---
Patient left AMA. Signed form handed to this MT by registration and AMA form placed in medical records basket.
== END 2019-08-22 16:24 | disposition left against medical advice (07) ==
LOC: ED 16:15
DX: R10.84 Generalized abdominal pain (principal); K92.1 Melena
CPT/HCPCS: 36415; 80053; 83690; 84703; 85025; 99283

== ENCOUNTER 2019-08-24 13:03 | Emergency (ER) | payer MEDICAID ==
[~2019-08-24] VITALS: Ht 160 cm; Wt 74.0 kg
[2019-08-24 14:54] LABS: ALANINE AMINOTRANSFERASE 49 U/L (12-78); ALBUMIN 2.9 g/dL (3.4-5.0); ANION GAP 8 mmol/L (5-15); CALCIUM 8.6 mg/dL (8.5-10.1); CHLORIDE 111 mmol/L (98-107)
[2019-08-24 14:56] LABS: ALKALINE PHOSPHATASE 160 U/L (45-117); BILIRUBIN,TOTAL 2.1 mg/dL (0.2-1.0); TOTAL PROTEIN 7.1 g/dL (6.4-8.2)
[2019-08-24 15:11] LABS: MEAN CORPUSCULAR HGB CONC 33.6 g/dL (32.4-35.8); MEAN CORPUSCULAR VOLUME 92.2 fL (80-100); MEAN PLATELET VOLUME 9.7 fL (7.4-10.4); PLATELET COUNT 75 x10^3/uL (130-400); RED BLOOD COUNT 4.73 x10^6/uL (3.82-5.3); RED CELL DISTRIBUTION WIDTH 16.9 % (9.6-15.2)
[2019-08-24 15:16] LABS: MD YES
[2019-08-24 15:17] LABS: <PLATELET ESTIMATE> DECREASED; EOS#(MANUAL) 0.08 x10^3/uL (0.0-0.4); EOS% (MANUAL) 3 % (1-7); INTERNATIONAL NORMALIZED RATIO 1.12 (0.93-1.1); LYMPH#(MANUAL) 0.39 x10^3/uL (1-3.4); LYMPHS% (MANUAL) 14 % (22-44); MONOS#(MANUAL) 0.62 x10^3/uL (0.3-2.7); MONOS% (MANUAL) 22 % (2-9); PROTHROMBIN TIME 11.9 Seconds (9.6-11.5); SEG#(MANUAL) 1.71 x10^3/uL (1.8-6.8); SEGS% (MANUAL) 61 % (42-75)
[2019-08-24 15:22] LABS: <PLT MORPHOLOGY> NORMAL PLT MORPH; <RBC MORPHOLOGY> NORMAL
--- NOTE | 2019-08-24 16:03 | NUR ---
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
--- NOTE | 2019-08-24 16:20 | NUR ---
PT AMBULATED TO RESTROOM WITH STEADY GAIT TO PROVIDE URINE SAMPLE. UA COLLECTED AND SENT TO LAB.
[2019-08-24 16:43] LABS: CULTURE INDICATED? YES; MICROSCOPIC INDICATED
--- NOTE | 2019-08-24 16:55 | NUR ---
PT RESTING IN [facility]. STATES SHE IS NAUSEOUS AND HAS SOME PAIN. NOTIFIED
[2019-08-24] MEDS ORDERED: MAALOX/HYOSCYAMINE/LIDOCAINE 45 ML BTL PO ONE (17:00)
[2019-08-24] MEDS ORDERED: MAALOX/HYOSCYAMINE/LIDOCAINE 45 ML BTL ONE (17:01)
[2019-08-24 17:38] VITALS: BP 119/61
== END 2019-08-24 17:39 | disposition home or self-care (01) ==
LOC: ED 17:21
DX: K92.1 Melena (principal); K29.21 Alcoholic gastritis with bleeding; F10.129 Alcohol abuse with intoxication, unspecified; I10 Essential (primary) hypertension; E11.9 Type 2 diabetes mellitus without complications; J44.9 Chronic obstructive pulmonary disease, unspecified; I25.2 Old myocardial infarction; Y90.9 Presence of alcohol in blood, level not specified; Z90.49 Acquired absence of other specified parts of digestive tract
CPT/HCPCS: 36415; 80053; 80307; 81001; 83690; 85025; 85610; 86850; 86900; 87086; 99283

== ENCOUNTER 2019-12-26 20:59 | Emergency (ER) | payer MEDICAID ==
[~2019-12-26] VITALS: Ht 160 cm; Wt 70.0 kg
[~2019-12-26 20:59] MED LIST changes: +MULT-449 PO; -MULT1TAB60 PO
[2019-12-26] MEDS ORDERED: SODIUM CHLORIDE FLUSH 10ML SYR IVF ONE (21:30)
[2019-12-26 22:06] LABS: MEAN CORPUSCULAR HEMOGLOBIN 30.7 pg (27.0-34.8); MEAN CORPUSCULAR HGB CONC 32.9 g/dL (32.4-35.8); MEAN CORPUSCULAR VOLUME 93.3 fL (80-100); MEAN PLATELET VOLUME 8.9 fL (7.4-10.4); PLATELET COUNT 83 x10^3/uL (130-400); RED BLOOD COUNT 4.03 x10^6/uL (3.82-5.3); RED CELL DISTRIBUTION WIDTH 17.4 % (9.6-15.2)
[2019-12-26 22:13] LABS: ALBUMIN 2.6 g/dL (3.4-5.0); ANION GAP 6 mmol/L (5-15); CALCIUM 8.1 mg/dL (8.5-10.1); CHLORIDE 116 mmol/L (98-107); CREATININE 0.67 mg/dL (0.55-1.02)
[2019-12-26 22:17] LABS: TROPONIN I < 0.015 ng/mL (0.000-0.045)
[2019-12-26 22:27] LABS: MD YES
[2019-12-26 22:31] LABS: BAND#(MANUAL) 0.03 x10^3/uL; BANDS%(MANUAL) 1 % (0-7); EOS#(MANUAL) 0.15 x10^3/uL (0.0-0.4); EOS% (MANUAL) 5 % (1-7); LYMPH#(MANUAL) 1.02 x10^3/uL (1-3.4); LYMPHS% (MANUAL) 35 % (22-44); METAMYELOCYTES# (MANUAL) 0.03 x10^3/uL (0-0); METAMYELOCYTES% (MANUAL) 1 % (0-1); MONOS#(MANUAL) 0.17 x10^3/uL (0.3-2.7); MONOS% (MANUAL) 6 % (2-9); SEG#(MANUAL) 1.51 x10^3/uL (1.8-6.8); SEGS% (MANUAL) 52 % (42-75)
[2019-12-26 22:32] LABS: ANISOCYTOSIS 1+
[2019-12-26 22:33] LABS: <PLATELET ESTIMATE> DECREASED; <PLT MORPHOLOGY> NORMAL PLT MORPH
[2019-12-26] MEDS ORDERED: ALBUTEROL/IPRATROPIUM 2.5MG/0.5MG, 3 ML NPPB ONE (23:30)
--- NOTE | 2019-12-26 23:57 | NUR ---
PATIENT COMPLETED BREATHING TREATMENT. TOLERATED WELL. PULSE OXYGENATION STATUS IMPROVED TO 96% AFTER DUONEB. PATIENT STATED THAT SHE FEELS BETTER. PATIENT IS ALMOST OUT OF ALBUTEROL AND SYMICORT AT HOME.
--- NOTE | 2019-12-27 00:30 | NUR ---
PATIENT PULSE OX 89% 3NC WTIHOUT AMBULATION. WHEN PATIENT EXERTS EFFORT, PULSE OX DROPS TO 87%. MD UPDATED ON PATIENTS CURRENT STATUS.
[2019-12-27 01:39] VITALS: BP 142/78
== END 2019-12-27 02:13 | disposition home or self-care (01) ==
LOC: ED 12-27 01:50
DX: R06.00 Dyspnea, unspecified (principal); R50.9 Fever, unspecified; R05 Cough; R94.31 Abnormal electrocardiogram [ECG] [EKG]; I10 Essential (primary) hypertension; E11.9 Type 2 diabetes mellitus without complications; J44.9 Chronic obstructive pulmonary disease, unspecified; Z90.49 Acquired absence of other specified parts of digestive tract
CPT/HCPCS: 36415; 71045; 80048; 82040; 83605; 84484; 85025; 87040; 93005; 94640; 99285; J7512

== ENCOUNTER 2020-04-20 09:43 | Emergency (ER) | payer MEDICAID ==
[~2020-04-20] VITALS: Ht 160 cm; Wt 77.4 kg
[2020-04-20] MEDS ORDERED: HYDROmorphone 1 MG/ML, 1ML INJ ONE (09:59)
[2020-04-20] MEDS ORDERED: ONDANSETRON 2MG/ML, 2ML IVPush ONE (10:00)
[2020-04-20] MEDS ORDERED: HYDROmorphone 2 MG/ML, 1ML IVPush PRN (10:00)
[2020-04-20] MEDS ORDERED: ONDANSETRON 2MG/ML, 2ML ONE (10:00)
[2020-04-20] MEDS ORDERED: SODIUM CHLORIDE FLUSH 10ML SYR IVF ONE (10:00)
[2020-04-20] MEDS ORDERED: SODIUM CHLORIDE 0.9% 1,000 ML IV ONE (10:00)
--- NOTE | 2020-04-20 10:06 | NUR ---
RN WITH PATIENT/IV START
--- NOTE | 2020-04-20 10:14 | NUR ---
PT HAS CO ABDOMINAL PAIN W N/V. SYMPTOMS STARTED YESTERDAY. PT STATES HX OF ABDOMINAL ISSUES. DENIES CP, SOB. MEDICATED PER ORDERS, IV ESTABLISHED. IVF. PT OFF TO IMAGING
[2020-04-20 10:18] LABS: BASOPHILS % (AUTO) 1 % (0-1); EOSINOPHILS % (AUTO) 3 % (1-7); LYMPHOCYTES % (AUTO) 33 % (22-44); MEAN CORPUSCULAR HEMOGLOBIN 31.1 pg (27.0-34.8); MEAN CORPUSCULAR HGB CONC 32.6 g/dL (32.4-35.8); MEAN PLATELET VOLUME 9.2 fL (7.4-10.4); MONOCYTES % (AUTO) 20 % (2-9); PLATELET COUNT 63 x10^3/uL (130-400); RED BLOOD COUNT 4.29 x10^6/uL (3.82-5.3); RED CELL DISTRIBUTION WIDTH 17.2 % (9.6-15.2)
[2020-04-20 10:29] LABS: ALANINE AMINOTRANSFERASE 33 U/L (12-78); ALBUMIN 2.6 g/dL (3.4-5.0); ANION GAP 7 mmol/L (5-15); CALCIUM 8.6 mg/dL (8.5-10.1); CHLORIDE 113 mmol/L (98-107); CREATININE 0.64 mg/dL (0.55-1.02)
[2020-04-20 10:31] LABS: ALKALINE PHOSPHATASE 152 U/L (45-117); BILIRUBIN,TOTAL 1.9 mg/dL (0.2-1.0); TOTAL PROTEIN 6.6 g/dL (6.4-8.2)
--- NOTE | 2020-04-20 10:50 | NUR ---
PT AMBULATED TO BATHROOM, INFORMED OF UA
[2020-04-20 10:51] LABS: MD YES
[2020-04-20 10:54] LABS: BASOS#(MANUAL) 0.04 x10^3/uL (0-0.1); BASOS% (MANUAL) 2 % (0-1); EOS#(MANUAL) 0.08 x10^3/uL (0.0-0.4); EOS% (MANUAL) 4 % (1-7); LYMPH#(MANUAL) 0.68 x10^3/uL (1-3.4); LYMPHS% (MANUAL) 34 % (22-44); MONOS#(MANUAL) 0.28 x10^3/uL (0.3-2.7); MONOS% (MANUAL) 14 % (2-9); SEG#(MANUAL) 0.92 x10^3/uL (1.8-6.8); SEGS% (MANUAL) 46 % (42-75)
[2020-04-20 10:56] LABS: <PLATELET ESTIMATE> DECREASED; <PLT MORPHOLOGY> NORMAL PLT MORPH; <RBC MORPHOLOGY> NORMAL
[2020-04-20 11:31] LABS: MICROSCOPIC INDICATED
[2020-04-20 11:41] VITALS: BP 127/79
--- NOTE | 2020-04-20 12:45 | NUR ---
Patient/Caregiver given discharge instructions and they have confirmed that they understand the instructions. Patient ambulatory with steady gait.
== END 2020-04-20 12:55 | disposition home or self-care (01) ==
LOC: ED 11:56
DX: N30.00 Acute cystitis without hematuria (principal); R10.12 Left upper quadrant pain; R11.2 Nausea with vomiting, unspecified; I10 Essential (primary) hypertension; E11.9 Type 2 diabetes mellitus without complications; J44.9 Chronic obstructive pulmonary disease, unspecified; I25.2 Old myocardial infarction; Z90.49 Acquired absence of other specified parts of digestive tract
CPT/HCPCS: 36415; 74176; 80053; 81001; 83690; 85025; 87086; 96361; 96374; 96375; 99284; J1170; J2405; J7030

== ENCOUNTER 2020-05-17 16:33 | Emergency (ER) | payer MEDICAID ==
[~2020-05-17] VITALS: Ht 160 cm; Wt 77.7 kg
[2020-05-17 17:41] VITALS: BP 158/99
[2020-05-17 18:16] LABS: BASOPHILS % (AUTO) 0 % (0-1); EOSINOPHILS % (AUTO) 3 % (1-7); LYMPHOCYTES % (AUTO) 23 % (22-44); MEAN CORPUSCULAR HEMOGLOBIN 31.8 pg (27.0-34.8); MEAN CORPUSCULAR HGB CONC 32.9 g/dL (32.4-35.8); MEAN PLATELET VOLUME 8.5 fL (7.4-10.4); MONOCYTES % (AUTO) 19 % (2-9); NEUTROPHILS % (AUTO) 54 % (42-75); PLATELET COUNT 65 x10^3/uL (130-400); RED BLOOD COUNT 4.45 x10^6/uL (3.82-5.3); RED CELL DISTRIBUTION WIDTH 16.9 % (9.6-15.2)
[2020-05-17 18:19] LABS: ALBUMIN 2.8 g/dL (3.4-5.0); ANION GAP 3 mmol/L (5-15); CALCIUM 9.1 mg/dL (8.5-10.1); CHLORIDE 108 mmol/L (98-107)
[2020-05-17 18:22] LABS: ALANINE AMINOTRANSFERASE 59 U/L (12-78); ALKALINE PHOSPHATASE 156 U/L (45-117); BILIRUBIN,TOTAL 2.6 mg/dL (0.2-1.0); TOTAL PROTEIN 6.8 g/dL (6.4-8.2)
[2020-05-17 18:50] LABS: MD SCAN
--- NOTE | 2020-05-17 19:38 | NUR ---
PRIMOX1
--- NOTE | 2020-05-17 19:44 | NUR ---
NILX2
--- NOTE | 2020-05-17 20:43 | NUR ---
NILX3
== END 2020-05-17 20:46 | disposition left against medical advice (07) ==
LOC: ED 20:40
DX: R07.0 Pain in throat (principal)
CPT/HCPCS: 36415; 80053; 83690; 85025; 99283

== ENCOUNTER 2020-05-23 04:37 | Emergency (ER) | payer MEDICAID ==
[~2020-05-23] VITALS: Ht 160 cm; Wt 78.1 kg
[2020-05-23 05:57] LABS: MEAN CORPUSCULAR HEMOGLOBIN 32.3 pg (27.0-34.8); MEAN CORPUSCULAR HGB CONC 33.4 g/dL (32.4-35.8); MEAN PLATELET VOLUME 9.2 fL (7.4-10.4); RED BLOOD COUNT 4.03 x10^6/uL (3.82-5.3); RED CELL DISTRIBUTION WIDTH 16.7 % (9.6-15.2)
--- NOTE | 2020-05-23 05:58 | NUR ---
PT STATES SHE USED TO DRINK HEAVY BUT ONLY DRINKS OCCASIONALLY NOW. PT HAS BE DIAGNOSED WITH ESOPHAGEAL VARICIES. PT STATES THAT PAIN IS GETTING WORSE "I CAN'T SWALLOW." PT MANAGING SECRETIONS WITHOUT DIFFICULTY. PT CONNECTED TO BP AND O2 MONITORS.
[2020-05-23] MEDS ORDERED: MAALOX/HYOSCYAMINE/LIDOCAINE 45 ML BTL PO ONE (06:00)
[2020-05-23 06:15] LABS: ANION GAP 5 mmol/L (5-15); CALCIUM 8.4 mg/dL (8.5-10.1); CHLORIDE 112 mmol/L (98-107); CREATININE 0.44 mg/dL (0.55-1.02)
[2020-05-23] MEDS ORDERED: MAALOX/HYOSCYAMINE/LIDOCAINE 45 ML BTL ONE ×2 (06:15→06:16)
[2020-05-23 06:16] LABS: ALANINE AMINOTRANSFERASE 45 U/L (12-78); ALBUMIN 2.5 g/dL (3.4-5.0); ALKALINE PHOSPHATASE 149 U/L (45-117); BILIRUBIN,TOTAL 1.6 mg/dL (0.2-1.0)
--- NOTE | 2020-05-23 06:19 | NUR ---
PT DRANK GI COCKTAIL WITHOUT DIFFICULTY.
[2020-05-23 06:22] LABS: PLATELET COUNT 49 x10^3/uL (130-400)
[2020-05-23 06:35] LABS: MD YES
[2020-05-23 06:38] LABS: <PLATELET ESTIMATE> DECREASED; ANISOCYTOSIS 1+; BAND#(MANUAL) 0.03 x10^3/uL; BANDS%(MANUAL) 1 % (0-7); EOS#(MANUAL) 0.08 x10^3/uL (0.0-0.4); EOS% (MANUAL) 3 % (1-7); LYMPH#(MANUAL) 0.65 x10^3/uL (1-3.4); LYMPHS% (MANUAL) 25 % (22-44); MONOS#(MANUAL) 0.23 x10^3/uL (0.3-2.7); MONOS% (MANUAL) 9 % (2-9); SEG#(MANUAL) 1.61 x10^3/uL (1.8-6.8); SEGS% (MANUAL) 62 % (42-75)
[2020-05-23 06:39] LABS: <PLT MORPHOLOGY> NORMAL PLT MORPH
[2020-05-23 06:44] VITALS: BP 124/67
--- NOTE | 2020-05-23 07:00 | NUR ---
report from mora gutierrez. as
== END 2020-05-23 07:51 | disposition home or self-care (01) ==
LOC: ED 05:22
DX: K02.9 Dental caries, unspecified (principal); K05.10 Chronic gingivitis, plaque induced; J02.8 Acute pharyngitis due to other specified organisms; D69.6 Thrombocytopenia, unspecified; B97.89 Other viral agents as the cause of diseases classified elsewhere; J44.9 Chronic obstructive pulmonary disease, unspecified; E11.9 Type 2 diabetes mellitus without complications; I25.2 Old myocardial infarction; G43.909 Migraine, unspecified, not intractable, without status migrainosus; I10 Essential (primary) hypertension; Z87.891 Personal history of nicotine dependence
CPT/HCPCS: 36415; 70360; 80053; 84703; 85025; 87081; 87880; 99284

== ENCOUNTER 2020-06-09 19:27 | Emergency (ER) | payer MEDICAID ==
[~2020-06-09] VITALS: Ht 160 cm; Wt 80.0 kg
--- NOTE | 2020-06-09 19:39 | NUR ---
LATE ENTRY DUE TO PATIENT CARE: PATIENT GUNNAR [facility] WITH CHIEF C/O ABD PAIN X2.5 DAYS. PER EMS PATIENT C/O 8.5/10 DIFFUSE ABD PAIN AND REPORTS "DARK, TARRY STOOLS." PATIENT IS SOB, BUT STATES THIS IS HER BASELINE DUE TO COPD. CHRISTIANN, CONNECTED TO BPM ARCHITECT, PLACED ON 3 LPM NC, CALL LIGHT WITHIN REACH. Addendum: 06/09/20 at 2120 by MELI PATIENT ADMITS TO SNORTING "A LINE OF METH 4 DAYS AGO."
--- NOTE | 2020-06-09 19:50 | NUR ---
ERMD AT BEDSIDE FOR EVALUATION.
[2020-06-09 20:20] LABS: BASOPHILS % (AUTO) 0 % (0-1); EOSINOPHILS % (AUTO) 2 % (1-7); LYMPHOCYTES % (AUTO) 26 % (22-44); MEAN CORPUSCULAR HEMOGLOBIN 32.3 pg (27.0-34.8); MEAN CORPUSCULAR HGB CONC 33.3 g/dL (32.4-35.8); MEAN PLATELET VOLUME 9.4 fL (7.4-10.4); MONOCYTES % (AUTO) 20 % (2-9); NEUTROPHILS % (AUTO) 52 % (42-75); PLATELET COUNT 67 x10^3/uL (130-400); RED BLOOD COUNT 3.81 x10^6/uL (3.82-5.3); RED CELL DISTRIBUTION WIDTH 16.1 % (9.6-15.2)
[2020-06-09 20:23] LABS: MD NO
[2020-06-09 20:28] LABS: INTERNATIONAL NORMALIZED RATIO 1.16 (0.93-1.1); PROTHROMBIN TIME 12.3 Seconds (9.6-11.5)
[2020-06-09 20:30] LABS: ALBUMIN 2.7 g/dL (3.4-5.0); ANION GAP 6 mmol/L (5-15); CALCIUM 8.4 mg/dL (8.5-10.1); CHLORIDE 113 mmol/L (98-107)
[2020-06-09 20:38] LABS: ALANINE AMINOTRANSFERASE 39 U/L (12-78); ALKALINE PHOSPHATASE 178 U/L (45-117); BILIRUBIN,TOTAL 1.6 mg/dL (0.2-1.0); TOTAL PROTEIN 6.9 g/dL (6.4-8.2)
--- NOTE | 2020-06-09 21:10 | NUR ---
PATIENT LAYING IN GURNEY ON PHONE, STEPHAN MATHEW, CALL LIGHT WITHIN REACH.
[2020-06-09 21:21] VITALS: BP 126/73
--- NOTE | 2020-06-09 21:45 | NUR ---
Patient given discharge instructions and prescriptions and they have confirmed that they understand the instructions. Patient stable and ambulatory with steady gait from ED, patient called a taxi.
== END 2020-06-09 21:46 | disposition home or self-care (01) ==
LOC: ED 20:24
DX: R10.84 Generalized abdominal pain (principal); I10 Essential (primary) hypertension; E11.9 Type 2 diabetes mellitus without complications; J44.9 Chronic obstructive pulmonary disease, unspecified; I25.2 Old myocardial infarction; Z90.49 Acquired absence of other specified parts of digestive tract
CPT/HCPCS: 36415; 80053; 83690; 85025; 85610; 85730; 99283

== ENCOUNTER 2020-07-11 14:29 | Emergency (ER) | payer MEDICAID ==
[~2020-07-11] VITALS: Ht 160 cm; Wt 80.0 kg
--- NOTE | 2020-07-11 14:31 | NUR ---
pt presents to ED via ambulance for generalized abd pain, "blood streaked" emesis and "coffee grounds in stools" onset last night. pt has hx esophageal varices that have been banded. 100mcg fentanyl, 4 mg zofran admin well logging mud analysis captain. report taken by ems. all monitors in place. call light in reach. awaiting MD and orders.
[2020-07-11] MEDS ORDERED: SODIUM CHLORIDE FLUSH 10ML SYR IVF ONE (15:00)
[2020-07-11] MEDS ORDERED: SODIUM CHLORIDE 0.9% 1,000ML IVBOLUS ONE (15:00)
[2020-07-11] MEDS ORDERED: PANTOPRAZOLE 80 MG in SODIUM CHLORIDE 0.9% 50 ML IVPB ONE (15:00)
[2020-07-11 15:12] LABS: BASOPHILS % (AUTO) 1 % (0-1); EOSINOPHILS % (AUTO) 2 % (1-7); LYMPHOCYTES % (AUTO) 29 % (22-44); MEAN CORPUSCULAR HEMOGLOBIN 32.5 pg (27.0-34.8); MEAN CORPUSCULAR HGB CONC 33.6 g/dL (32.4-35.8); MEAN PLATELET VOLUME 8.8 fL (7.4-10.4); MONOCYTES % (AUTO) 10 % (2-9); NEUTROPHILS % (AUTO) 58 % (42-75); PLATELET COUNT 72 x10^3/uL (130-400); RED BLOOD COUNT 4.04 x10^6/uL (3.82-5.3); RED CELL DISTRIBUTION WIDTH 16.1 % (9.6-15.2)
[2020-07-11 15:18] LABS: MD NO
[2020-07-11 15:23] LABS: ALANINE AMINOTRANSFERASE 45 U/L (12-78); ALBUMIN 2.8 g/dL (3.4-5.0); ANION GAP 4 mmol/L (5-15); CALCIUM 8.3 mg/dL (8.5-10.1); CHLORIDE 117 mmol/L (98-107); CREATININE 0.53 mg/dL (0.55-1.02)
[2020-07-11 15:25] LABS: ALKALINE PHOSPHATASE 156 U/L (45-117); TOTAL PROTEIN 6.7 g/dL (6.4-8.2)
[2020-07-11 15:28] LABS: MICROSCOPIC INDICATED
--- NOTE | 2020-07-11 15:40 | NUR ---
fecal occult blood test performed by EDMD. NS bolus and protonix infusing. protonix infusing via IV pump. pt a&o, resps even and unlabored, nadn. nsr on vehicle monitor technician, no ectopy. all monitors in place. call light in reach. awaiting MD reassessment.
[2020-07-11 15:48] LABS: INTERNATIONAL NORMALIZED RATIO 1.2 (0.93-1.1); PROTHROMBIN TIME 12.7 Seconds (9.6-11.5)
--- NOTE | 2020-07-11 16:17 | NUR ---
pt anxious, restless in bed, requesting discharge. pt states "I just dont feel good, I want to go home and lay in bed." KATIE Rodeny notified.
[2020-07-11 16:31] VITALS: BP 134/65
--- NOTE | 2020-07-11 16:46 | NUR ---
pt requesting to leave to attend to matters at home. "my son needs me." pt refusing to wait for dc paperwork and remainder of NS bolus despite RN education. MD informed. pt is a&o, resps even and unlabored. piv dc'd with tip intact. pt ambulatory to dc desk with steady gait. pt educated not to drive today, states she has called taxi to drive her home. pt ambulated to discharge with own portable oxygen.
== END 2020-07-11 16:46 | disposition home or self-care (01) ==
LOC: ED 15:55
DX: F15.10 Other stimulant abuse, uncomplicated (principal); R11.10 Vomiting, unspecified; R10.84 Generalized abdominal pain; J44.9 Chronic obstructive pulmonary disease, unspecified; I25.2 Old myocardial infarction; Z90.49 Acquired absence of other specified parts of digestive tract; Z88.2 Allergy status to sulfonamides
CPT/HCPCS: 36415; 80053; 81001; 83690; 85025; 85610; 85730; 96361; 96374; 99283; C9113; J7030

== ENCOUNTER 2020-10-17 17:35 | Emergency (ER) | payer MEDICAID ==
[~2020-10-17] VITALS: Ht 160 cm; Wt 80.0 kg
[~2020-10-17 17:35] MED LIST changes: +ACID1TAB7 PO; +BUDE10.22 INH; -FOLI-17 PO; +FOLI1TAB32 PO; +HYDR-2214; -HYDR-3240; +MULT-482 PO; -MULT-750 PO; -OXYC5TAB3 PO; +OXYC5TAB98 PO; +SUCR1ORA5 PO
--- NOTE | 2020-10-17 18:00 | NUR ---
WELL LOGGING CAPTAIN: PT TO ROOM FROM [facility]I LEO
--- NOTE | 2020-10-17 18:46 | NUR ---
Report given to Emile YORK
[2020-10-17 18:47] LABS: BASOPHILS % (AUTO) 1 % (0-1); EOSINOPHILS % (AUTO) 4 % (1-7); LYMPHOCYTES % (AUTO) 37 % (22-44); MEAN CORPUSCULAR HEMOGLOBIN 33.1 pg (27.0-34.8); MEAN CORPUSCULAR HGB CONC 33.5 g/dL (32.4-35.8); MEAN PLATELET VOLUME 9.6 fL (7.4-10.4); MONOCYTES % (AUTO) 16 % (2-9); NEUTROPHILS % (AUTO) 41 % (42-75); PLATELET COUNT 66 x10^3/uL (130-400); RED BLOOD COUNT 4.42 x10^6/uL (3.82-5.3); RED CELL DISTRIBUTION WIDTH 15.8 % (9.6-15.2)
[2020-10-17 18:49] LABS: MD NO
[2020-10-17 18:55] LABS: ALBUMIN 2.6 g/dL (3.4-5.0); ANION GAP 3 mmol/L (5-15); CALCIUM 8.8 mg/dL (8.5-10.1); CHLORIDE 112 mmol/L (98-107)
[2020-10-17 18:58] LABS: ALANINE AMINOTRANSFERASE 40 U/L (12-78); ALKALINE PHOSPHATASE 131 U/L (45-117); BILIRUBIN,TOTAL 1.9 mg/dL (0.2-1.0); CREATININE 0.58 mg/dL (0.55-1.02); TOTAL PROTEIN 6.4 g/dL (6.4-8.2)
--- NOTE | 2020-10-17 19:01 | NUR ---
pt a&ox4,no acute distress. resting and waiting in bed for results of tests. pt on o2 nc 2lpm.
[2020-10-17 20:44] VITALS: BP 127/84
--- NOTE | 2020-10-17 20:44 | NUR ---
PT CALM AND QUIET, AND RESTING IN ROOM. REMAINS ON O2 NC PER HOME USE. AWAITING ALL RESULTS AND RECHECK BY .
--- NOTE | 2020-10-17 22:08 | NUR ---
F/U AND D/C INSTRUCTIONS GIVEN TO PT AND SHE V/U AND D/C'D AMBULATORY.
== END 2020-10-17 22:10 | disposition home or self-care (01) ==
LOC: ED 21:45
DX: R10.84 Generalized abdominal pain (principal); K59.00 Constipation, unspecified; E11.9 Type 2 diabetes mellitus without complications; I25.2 Old myocardial infarction; I10 Essential (primary) hypertension; J44.9 Chronic obstructive pulmonary disease, unspecified; Z90.49 Acquired absence of other specified parts of digestive tract
CPT/HCPCS: 36415; 71045; 74021; 80053; 83690; 85025; 99284

== ENCOUNTER 2020-10-20 18:57 | Emergency (ER) | payer MEDICAID ==
[~2020-10-20] VITALS: Ht 160 cm; Wt 89.0 kg
--- NOTE | 2020-10-20 19:00 | NUR ---
Patient BIBA c/o RUQ abd pain and nausea x2 weeks. Patient has a hx of cirrhosis. Admits to ETOH today. Patient is in NAD. Respirations even and unlabored. Patient RA sat 88%. Patient has COPD and uses O2 at home. Placed on 3lpm O2 via NC.
[2020-10-20] MEDS ORDERED: MAALOX/HYOSCYAMINE/LIDOCAINE 45 ML BTL ONE (19:03)
[2020-10-20] MEDS ORDERED: ONDANSETRON ODT 4 MG ONE (19:13)
[2020-10-20 19:21] LABS: BASOPHILS % (AUTO) 2 % (0-1); EOSINOPHILS % (AUTO) 2 % (1-7); LYMPHOCYTES % (AUTO) 27 % (22-44); MEAN CORPUSCULAR HEMOGLOBIN 33.1 pg (27.0-34.8); MEAN CORPUSCULAR HGB CONC 33.7 g/dL (32.4-35.8); MEAN PLATELET VOLUME 9.6 fL (7.4-10.4); MONOCYTES % (AUTO) 9 % (2-9); NEUTROPHILS % (AUTO) 62 % (42-75); PLATELET COUNT 63 x10^3/uL (130-400); RED CELL DISTRIBUTION WIDTH 15.2 % (9.6-15.2)
[2020-10-20] MEDS ORDERED: ONDANSETRON ODT 4 MG PO ONE (19:30)
[2020-10-20] MEDS ORDERED: MAALOX/HYOSCYAMINE/LIDOCAINE 45 ML BTL PO ONE (19:30)
[2020-10-20] MEDS ORDERED: PLEASE ENTER HEIGHT AND WEIGHT MC SCH (19:30)
[2020-10-20 19:34] LABS: ALANINE AMINOTRANSFERASE 43 U/L (12-78); ALBUMIN 2.7 g/dL (3.4-5.0); ANION GAP 8 mmol/L (5-15); CALCIUM 8.2 mg/dL (8.5-10.1); CHLORIDE 112 mmol/L (98-107); CREATININE 0.49 mg/dL (0.55-1.02)
[2020-10-20 19:37] LABS: ALKALINE PHOSPHATASE 141 U/L (45-117); BILIRUBIN,TOTAL 1.7 mg/dL (0.2-1.0); TOTAL PROTEIN 6.5 g/dL (6.4-8.2)
[2020-10-20 19:43] LABS: MD SCAN
[2020-10-20] MEDS ORDERED: LACTULOSE 20 GM/30 ML UDC PO ONE (20:30)
[2020-10-20 21:30] VITALS: BP 113/55
== END 2020-10-20 22:00 | disposition home or self-care (01) ==
LOC: ED 19:55
DX: K29.00 Acute gastritis without bleeding (principal); E72.20 Disorder of urea cycle metabolism, unspecified; J44.9 Chronic obstructive pulmonary disease, unspecified; I25.2 Old myocardial infarction; G89.29 Other chronic pain; E11.9 Type 2 diabetes mellitus without complications; I10 Essential (primary) hypertension; Z87.11 Personal history of peptic ulcer disease
CPT/HCPCS: 36415; 76700; 80053; 82140; 83690; 85025; 99284; Q0162

== ENCOUNTER 2020-11-28 22:30 | Emergency (ER) | payer MEDICAID ==
[~2020-11-28] VITALS: Ht 160 cm; Wt 79.5 kg
--- NOTE | 2020-11-28 23:14 | NUR ---
GUNNAR [facility]. EMS STATES PT WAS HAVING COITUS AND HEARD A POP IN THE RIGHT HIP ON 11/20/20. PT STATES THAT PAIN HAS BEEN GETTING WORSE 9/10 PAIN THAT HAS BEEN GETTING WORSE THIS LAST WEEK, THAT IT HURTS WITH MOVEMENT AND THAT HER WALKING IS NOT NORMAL. PT STATES SHE HAD AN APPOINTMENT TO SEE HER FAMILY CARE PHYSICIAN TOMORROW BUT HER CALLED EMS.
--- NOTE | 2020-11-28 23:23 | NUR ---
PT WAS GIVEN 2 DOSES OF FETANYL OR 75 MICROGRAMS. PT STATES DID SMOKE SOME METH IN THE LAST DAY AND SOME MARIJUANA TO HELP TAKE AWAY THE PAIN.
[2020-11-29 01:15] VITALS: BP 137/76
--- NOTE | 2020-11-29 01:31 | NUR ---
Patient given discharge instructions and they have confirmed that they understand the instructions. Patient sent to discharge desk in wheelchair with no questions.
== END 2020-11-29 01:33 | disposition home or self-care (01) ==
LOC: ED 11-29 00:28
DX: M25.551 Pain in right hip (principal); F15.10 Other stimulant abuse, uncomplicated; Z72.9 Problem related to lifestyle, unspecified; I10 Essential (primary) hypertension; E11.9 Type 2 diabetes mellitus without complications; G43.909 Migraine, unspecified, not intractable, without status migrainosus; G89.29 Other chronic pain; J44.9 Chronic obstructive pulmonary disease, unspecified; Z90.49 Acquired absence of other specified parts of digestive tract; Z87.11 Personal history of peptic ulcer disease
CPT/HCPCS: 99283

== ENCOUNTER 2020-12-26 07:18 | Emergency (ER) | payer MEDICAID ==
[~2020-12-26] VITALS: Ht 172.7 cm; Wt 78.4 kg
--- NOTE | 2020-12-26 07:42 | NUR ---
BIB EMS from the [facility]. c/o increased sob/ abd pain starting last night. HX cirrhosis. PT on home o2 of 4L NC. Blood in stool for the past 2 days. PT in bed in gown with cont spo2, bp q 30 min, side rails up x 2 call light in reach. lab in room.
[2020-12-26] MEDS ORDERED: MORPHINE SULFATE 4 MG/ML, 1ML ONE ×2 (07:45→10:32)
[2020-12-26] MEDS ORDERED: ONDANSETRON 2MG/ML, 2ML ONE (07:45)
[2020-12-26] MEDS ORDERED: PANTOPRAZOLE 40 MG IV ONE (07:45)
[2020-12-26] MEDS: MORPHINE SULFATE 4 MG/ML, 1ML IVPush PRN ×2 (07:51→10:39)
[2020-12-26] MEDS ORDERED: SODIUM CHLORIDE 0.9% 1,000ML IVBOLUS ONE (08:00)
[2020-12-26] MEDS ORDERED: PANTOPRAZOLE 40 MG IV IVPush ONE (08:00)
[2020-12-26] MEDS ORDERED: ONDANSETRON 2MG/ML, 2ML IVPush ONE (08:00)
[2020-12-26 08:01] LABS: BASOPHILS % (AUTO) 1 % (0-1); EOSINOPHILS % (AUTO) 3 % (1-7); LYMPHOCYTES % (AUTO) 25 % (22-44); MEAN CORPUSCULAR HEMOGLOBIN 32.9 pg (27.0-34.8); MEAN CORPUSCULAR HGB CONC 33.3 g/dL (32.4-35.8); MEAN PLATELET VOLUME 9.1 fL (7.4-10.4); MONOCYTES % (AUTO) 20 % (2-9); NEUTROPHILS % (AUTO) 52 % (42-75); PLATELET COUNT 62 x10^3/uL (130-400); RED BLOOD COUNT 3.93 x10^6/uL (3.82-5.3); RED CELL DISTRIBUTION WIDTH 15.5 % (9.6-15.2)
[2020-12-26 08:09] LABS: ALANINE AMINOTRANSFERASE 40 U/L (12-78); ALBUMIN 2.4 g/dL (3.4-5.0); ANION GAP 7 mmol/L (5-15); CALCIUM 8.3 mg/dL (8.5-10.1); CHLORIDE 115 mmol/L (98-107); CREATININE 0.36 mg/dL (0.55-1.02)
[2020-12-26 08:11] LABS: ALKALINE PHOSPHATASE 167 U/L (45-117); BILIRUBIN,TOTAL 1.9 mg/dL (0.2-1.0); TOTAL PROTEIN 6.1 g/dL (6.4-8.2)
--- NOTE | 2020-12-26 08:36 | NUR ---
URINE CUP AT [facility], PT NOTIFIED ON UA ORDER.
--- NOTE | 2020-12-26 08:36 | NUR ---
PT CALM SLEEPING, RR EVEN AND UNLABORED. NAD
[2020-12-26 09:36] LABS: MICROSCOPIC INDICATED
[2020-12-26] MEDS ORDERED: POTASSIUM CHLORIDE 20 MEQ TAB.ER.PRT PO ONE (10:30)
[2020-12-26] MEDS ORDERED: CEFTRIAXONE 1,000 MG in DEXTROSE 5% 50 ML IVPB ONE (10:30)
[2020-12-26] MEDS ORDERED: POTASSIUM CHLORIDE 20 MEQ TAB.ER.PRT ONE (10:31)
[2020-12-26 11:02] VITALS: BP 124/74
== END 2020-12-26 11:53 | disposition home or self-care (01) ==
LOC: ED 07:30
DX: N30.00 Acute cystitis without hematuria (principal); R10.84 Generalized abdominal pain; E87.6 Hypokalemia
CPT/HCPCS: 36415; 80053; 81001; 83690; 85025; 87077; 87086; 96361; 96365; 96375; 96376; 99284; C9113; J0696; J2270; J2405; J7030; 87186

== ENCOUNTER 2021-01-08 13:27 | Emergency (ER) | payer MEDICAID ==
[~2021-01-08] VITALS: Ht 160 cm; Wt 77.5 kg
[2021-01-08 13:59] LABS: BASOPHILS % (AUTO) 0 % (0-1); EOSINOPHILS % (AUTO) 2 % (1-7); LYMPHOCYTES % (AUTO) 16 % (22-44); MEAN CORPUSCULAR HEMOGLOBIN 33.2 pg (27.0-34.8); MEAN CORPUSCULAR HGB CONC 33.9 g/dL (32.4-35.8); MEAN PLATELET VOLUME 9.6 fL (7.4-10.4); MONOCYTES % (AUTO) 19 % (2-9); NEUTROPHILS % (AUTO) 64 % (42-75); PLATELET COUNT 62 x10^3/uL (130-400); RED BLOOD COUNT 4.24 x10^6/uL (3.82-5.3); RED CELL DISTRIBUTION WIDTH 15.5 % (9.6-15.2)
[2021-01-08] MEDS ORDERED: ONDANSETRON 2MG/ML, 2ML IVPush ONE (14:00)
[2021-01-08] MEDS ORDERED: MAALOX/HYOSCYAMINE/LIDOCAINE 45 ML BTL PO ONE (14:00)
[2021-01-08] MEDS ORDERED: PLEASE ENTER HEIGHT AND WEIGHT MC SCH (14:00)
[2021-01-08] MEDS ORDERED: MORPHINE SULFATE 4 MG/ML, 1ML IVPush ONE (14:00)
[2021-01-08] MEDS ORDERED: SODIUM CHLORIDE FLUSH 10ML SYR IVF ONE (14:00)
[2021-01-08 14:09] LABS: ALBUMIN 2.4 g/dL (3.4-5.0); ANION GAP 2 mmol/L (5-15); CHLORIDE 108 mmol/L (98-107)
[2021-01-08] MEDS ORDERED: MORPHINE SULFATE 4 MG/ML, 1ML ONE (14:10)
[2021-01-08] MEDS ORDERED: ONDANSETRON 2MG/ML, 2ML ONE (14:10)
[2021-01-08] MEDS ORDERED: MAALOX/HYOSCYAMINE/LIDOCAINE 45 ML BTL ONE (14:11)
[2021-01-08 14:13] LABS: ALANINE AMINOTRANSFERASE 38 U/L (12-78); ALKALINE PHOSPHATASE 151 U/L (45-117); BILIRUBIN,TOTAL 2.2 mg/dL (0.2-1.0); CREATININE 0.46 mg/dL (0.55-1.02); TOTAL PROTEIN 6.5 g/dL (6.4-8.2)
[2021-01-08 14:15] LABS: INTERNATIONAL NORMALIZED RATIO 1.18 (0.93-1.1); PROTHROMBIN TIME 12.5 Seconds (9.6-11.5)
[2021-01-08] MEDS ORDERED: SUCR1TAB33 PO (14:51)
[2021-01-08] MEDS ORDERED: BUDE10.22 INH (14:51)
--- NOTE | 2021-01-08 14:56 | NUR ---
REPORT FROM JAKOB YORK
[2021-01-08 16:02] VITALS: BP 118/79
== END 2021-01-08 16:13 | disposition home or self-care (01) ==
LOC: ED 13:57
DX: R10.84 Generalized abdominal pain (principal); L03.116 Cellulitis of left lower limb; R11.2 Nausea with vomiting, unspecified; I10 Essential (primary) hypertension; E11.9 Type 2 diabetes mellitus without complications; J44.9 Chronic obstructive pulmonary disease, unspecified; I25.2 Old myocardial infarction; I95.9 Hypotension, unspecified; Z90.49 Acquired absence of other specified parts of digestive tract
CPT/HCPCS: 36415; 74021; 80053; 83690; 85025; 85610; 85730; 96374; 96375; 99284; J2270; J2405

== ENCOUNTER 2021-01-15 18:13 | Emergency (ER) | payer MEDICAID ==
[~2021-01-15] VITALS: Ht 160 cm; Wt 83.6 kg
[~2021-01-15 18:13] MED LIST changes: +SUCR1TAB33 PO
--- NOTE | 2021-01-15 20:31 | NUR ---
PT PRESENTS TO ED WITH LEFT ANKLE PAIN FOR 2 DAYS. PT STATES SHE ROLLED HER ANKLE AND IT HAS BEEN SWOLLEN SINCE.
--- NOTE | 2021-01-15 20:32 | NUR ---
PT IN GOWN, RESTING ON GURNEY, AND PLACED ON CONTINUOUS MONITORING.
--- NOTE | 2021-01-15 21:17 | NUR ---
pt resting on gurney, denies needs at this time.
[2021-01-15] MEDS ORDERED: CEFAZOLIN PMX 1GM/50ML 50 ML ONE (21:26)
[2021-01-15] MEDS ORDERED: ONDANSETRON 2MG/ML, 2ML ONE (21:26)
[2021-01-15] MEDS ORDERED: MORPHINE SULFATE 4 MG/ML, 1ML ONE (21:26)
[2021-01-15] MEDS ORDERED: ONDANSETRON 2MG/ML, 2ML IVPush ONE (21:30)
[2021-01-15] MEDS ORDERED: CEFAZOLIN PMX 1GM/50ML 50 ML IVPB ONE (21:30)
[2021-01-15] MEDS ORDERED: VANCOMYCIN PER PHARMACY MC ONE (21:30)
[2021-01-15] MEDS ORDERED: MORPHINE SULFATE 4 MG/ML, 1ML IV PRN (21:30)
[2021-01-15] MEDS ORDERED: SODIUM CHLORIDE FLUSH 10ML SYR IVF ONE (21:30)
[2021-01-15] MEDS ORDERED: VANCOMYCIN 2,000 MG in SODIUM CHLORIDE 0.9% 500 ML IV ONE (22:00)
--- NOTE | 2021-01-15 22:00 | NUR ---
PT RESTING ON GURNEY, DENIES NEEDS AT THIS TIME.
[2021-01-15 22:03] LABS: BASOPHILS % (AUTO) 1 % (0-1); EOSINOPHILS % (AUTO) 4 % (1-7); LYMPHOCYTES % (AUTO) 30 % (22-44); MEAN CORPUSCULAR HGB CONC 33.6 g/dL (32.4-35.8); MEAN PLATELET VOLUME 9.3 fL (7.4-10.4); MONOCYTES % (AUTO) 15 % (2-9); NEUTROPHILS % (AUTO) 50 % (42-75); PLATELET COUNT 72 x10^3/uL (130-400); RED BLOOD COUNT 3.91 x10^6/uL (3.82-5.3); RED CELL DISTRIBUTION WIDTH 15.4 % (9.6-15.2)
[2021-01-15 22:13] LABS: ALANINE AMINOTRANSFERASE 32 U/L (12-78); ALBUMIN 2.3 g/dL (3.4-5.0); ANION GAP 5 mmol/L (5-15); CHLORIDE 110 mmol/L (98-107); CREATININE 0.37 mg/dL (0.55-1.02)
[2021-01-15 22:15] LABS: ALKALINE PHOSPHATASE 133 U/L (45-117); BILIRUBIN,TOTAL 1.5 mg/dL (0.2-1.0); TOTAL PROTEIN 6.2 g/dL (6.4-8.2)
--- NOTE | 2021-01-15 23:00 | NUR ---
PT RESTING ON GURNEY, DENIES NEEDS AT THIS TIME.
[2021-01-16 00:45] VITALS: BP 123/73
--- NOTE | 2021-01-16 00:47 | NUR ---
Patient given discharge instructions and they have confirmed that they understand the instructions. Patient ambulatory with steady gait.
== END 2021-01-16 01:13 | disposition home or self-care (01) ==
LOC: ED 21:07
DX: G89.11 Acute pain due to trauma (principal); M25.572 Pain in left ankle and joints of left foot; L03.116 Cellulitis of left lower limb; J44.9 Chronic obstructive pulmonary disease, unspecified; I25.2 Old myocardial infarction; I10 Essential (primary) hypertension; G43.909 Migraine, unspecified, not intractable, without status migrainosus; E11.9 Type 2 diabetes mellitus without complications; X58.XXXA Exposure to other specified factors, initial encounter; Y93.89 Activity, other specified; Y92.89 Other specified places as the place of occurrence of the external cause; Y99.8 Other external cause status
CPT/HCPCS: 36415; 73610; 80053; 83605; 84145; 85025; 87040; 93971; 96365; 96366; 96368; 96375; 99285; J0690; J2270; J2405; J3370; J7040

== ENCOUNTER 2021-02-26 12:48 | Emergency (ER) | payer MEDICAID ==
[~2021-02-26] VITALS: Ht 160 cm; Wt 85.0 kg
--- NOTE | 2021-02-26 13:00 | NUR ---
PT UNDRESSED, PLACED IN GOWN. PT STATES LESS NAUSEA FOLLOWING ZOFRAN GIVEN ODT. PT REPORTS OF RECENT INCREASE IN STRESSORS CAUSED RELAPSE. PT WITH HX OF DRUG ABUSE WELL. WARM BLANKET PROVIDED, CALL LIGHT WITHIN REACH.
--- NOTE | 2021-02-26 13:40 | NUR ---
PT AMBULATORY TO BR WITH STEADY GAIT. DARK YASMINE URINE COLLECTED/SENT TO LAB. AWAITING CT.
[2021-02-26 13:42] LABS: BASOPHILS % (AUTO) 2 % (0-1); EOSINOPHILS % (AUTO) 2 % (1-7); LYMPHOCYTES % (AUTO) 31 % (22-44); MEAN CORPUSCULAR HEMOGLOBIN 33.3 pg (27.0-34.8); MEAN CORPUSCULAR HGB CONC 33.5 g/dL (32.4-35.8); MEAN PLATELET VOLUME 9.1 fL (7.4-10.4); MONOCYTES % (AUTO) 12 % (2-9); NEUTROPHILS % (AUTO) 53 % (42-75); PLATELET COUNT 75 x10^3/uL (130-400); RED BLOOD COUNT 4.47 x10^6/uL (3.82-5.3); RED CELL DISTRIBUTION WIDTH 16.5 % (9.6-15.2)
[2021-02-26 13:53] LABS: CHLORIDE 111 mmol/L (98-107)
[2021-02-26 13:54] LABS: ALANINE AMINOTRANSFERASE 40 U/L (12-78); ALBUMIN 2.4 g/dL (3.4-5.0); ANION GAP 7 mmol/L (5-15); CALCIUM 8.4 mg/dL (8.5-10.1); CREATININE 0.35 mg/dL (0.55-1.02)
[2021-02-26 13:54] LABS: MICROSCOPIC INDICATED
[2021-02-26 13:56] LABS: ALKALINE PHOSPHATASE 156 U/L (45-117); BILIRUBIN,TOTAL 2.9 mg/dL (0.2-1.0); TOTAL PROTEIN 7.2 g/dL (6.4-8.2)
--- NOTE | 2021-02-26 14:13 | NUR ---
PT TO CT.
[2021-02-26 15:12] VITALS: BP 122/74
== END 2021-02-26 15:14 | disposition home or self-care (01) ==
LOC: ED 14:46
DX: R10.84 Generalized abdominal pain (principal); R11.2 Nausea with vomiting, unspecified; I10 Essential (primary) hypertension; Z90.49 Acquired absence of other specified parts of digestive tract
CPT/HCPCS: 36415; 74176; 80053; 81001; 83690; 85025; 87086; 99284

== ENCOUNTER 2021-03-13 13:12 | Emergency (ER) | payer MEDICAID ==
[~2021-03-13] VITALS: Ht 160 cm; Wt 84.1 kg
[2021-03-13 13:39] VITALS: BP 140/71
--- NOTE | 2021-03-13 20:31 | NUR ---
PT LEFT BEFORE GETTIN BACK TO A ROOM
== END 2021-03-13 20:33 | disposition left against medical advice (07) ==
LOC: ED 14:00
DX: M79.89 Other specified soft tissue disorders (principal); Z53.21 Procedure and treatment not carried out due to patient leaving prior to being seen by health care provider